=== PATIENT | female | born 1950 | race Asian ===

== ENCOUNTER 2016-11-09 14:24 | Outpatient (RCR) | payer OTHER | END 2016-11-21 | disposition home or self-care (01) | LOC: PULM 14:24 | PROVIDERS: ATTEND Nurse Practitioner Family | DX: J98.4 Other disorders of lung (principal); R06.00 Dyspnea, unspecified; E66.9 Obesity, unspecified | CPT/HCPCS: 99211 ==

== ENCOUNTER → 2017-03-10 | Outpatient (CLI) | payer MEDICARE, MEDICAID ==
--- NOTE | 2017-03-10 18:03 | Diagnostic Imaging Report ---
INDICATION: Screening for osteoporosis. EXAMINATION: DEXA scan. The bone mineral density of the hips and spine was measured. COMPARISON: There are no prior studies available for comparison. FINDINGS: The T-score for the spine is -0.3. The T-score for the left hip is 0.5 and for the right hip is 0.1. All of these values are within normal limits. IMPRESSION: The bone mineral density of the hips and spine is within normal limits. Dictated by: Dictated on workstation # [id number]
== END ==
LOC: RAD 09:03
PROVIDERS: ATTEND Nurse Practitioner Family
DX: Z78.0 Asymptomatic menopausal state (principal)
CPT/HCPCS: 77080

== ENCOUNTER → 2017-09-26 | Outpatient (CLI) | payer MEDICAID, MEDICARE ==
--- NOTE | 2017-09-26 18:30 | Diagnostic Imaging Report ---
PROCEDURE: MRI left joint lower extremity without contrast. TECHNIQUE: Multiplanar, multisequence non contrast-enhanced MRI of the left lower extremity was accomplished. INDICATION: Left knee injury and pain. COMPARISON: None. FINDINGS: Examination is limited by motion artifact. The anterior and posterior cruciate ligaments are intact. Intrasubstance degeneration of the anterior horn of the lateral meniscus with no focal tear. There is no visible body of the medial meniscus with anterior extrusion of the markedly degenerated anterior horn of the medial meniscus. Marked intrasubstance degeneration of the posterior horn of the medial meniscus. There is advanced chondromalacia with large osteophytes and near-complete joint space loss of the medial compartment. Similarly, there is advanced chondromalacia of the patellofemoral compartment with complete joint space loss and large osteophytes. There is more moderate chondromalacia of the medial compartment. Large left knee joint effusion. The medial and lateral collateral ligamentous complexes appear intact. The posterior lateral corner, medial patellar retinaculum, and extensor mechanism are intact. No abnormal bone marrow signal to suggest fracture or contusion. Normal flow void in the popliteal artery. Small popliteal cyst measuring up to 2.2 cm. IMPRESSION: 1. Examination is limited by motion artifact. 2. [id number] tricompartmental chondromalacia. 3. Extrusion and disruption of the medial meniscus is poorly characterized due to the motion artifact. The body of the medial meniscus is not seen. This appears to be chronic as there are advanced degenerative changes in the medial compartment. 3. Large right knee joint effusion. 4. No MRI evidence of an acute ligamentous or osseous injury. Dictated by: Dictated on workstation # [id number]
== END ==
LOC: RAD 16:25
PROVIDERS: ATTEND Nurse Practitioner Family
DX: M94.262 Chondromalacia, left knee (principal); M23.304 Other meniscus derangements, unspecified medial meniscus, left knee; M25.462 Effusion, left knee
CPT/HCPCS: 73721

== ENCOUNTER 2017-11-02 09:45 | Outpatient (CLI) | payer MEDICARE ==
[~2017-11-02] VITALS: Ht 157.5 cm; Wt 89.1 kg
[2017-11-02] MEDS ORDERED: GLUC480L3 PO (10:04)
[2017-11-02] MEDS ORDERED: PANADOL PO (10:04)
[2017-11-02] MEDS ORDERED: OMEG-160 PO (10:04)
[2017-11-02] MEDS ORDERED: OMEP40CA36 PO (10:04)
[2017-11-02] MEDS ORDERED: CALC1TAB PO (10:04)
[2017-11-02] MEDS ORDERED: MULT-35 PO (10:04)
[2017-11-02] MEDS ORDERED: LEVO75TA6 PO (10:04)
[2017-11-02] MEDS ORDERED: TIOT18CA2 IH (10:04)
[2017-11-02 10:09] VITALS: BP 138/86
[2017-11-03] MEDS ORDERED: BUDE10.2 IH (14:34)
== END 2017-11-02 11:33 | disposition home or self-care (01) ==
LOC: PREOP 09:45
PROVIDERS: ATTEND Orthopaedic Surgery
DX: Z01.818 Encounter for other preprocedural examination (principal); Z11.2 Encounter for screening for other bacterial diseases; M23.204 Derangement of unspecified medial meniscus due to old tear or injury, left knee
CPT/HCPCS: 87081

== ENCOUNTER 2017-11-09 07:57 | Day surgery (SDC) | payer MEDICARE, MEDICAID ==
--- NOTE | 2017-10-31 14:45 | HISTORY AND PHYSICAL ---
DATE OF SERVICE: DATE OF ADMISSION: 11/09/2017. REASON FOR ADMISSION: This will be for left knee arthroscopy as an outpatient surgery. HISTORY OF PRESENT ILLNESS: The patient is a 66-year-old female with complaints of left knee pain. She reports progressive worsening pain. She has undergone injections in the past with only temporary relief. She has taken oral steroids with minimal relief. She has been taking ibuprofen with minimal relief. She reports functional impairment. She reports difficulty with stairs. Radiographs revealed significant arthrosis. The patient understands that arthroscopy may provide hope with her mechanical symptoms, but will not alleviate her arthritic symptoms. She does not desire total knee arthroplasty currently. REVIEW OF SYSTEMS: No chest pain, no shortness of breath. No dysuria. PAST MEDICAL HISTORY: COPD, hypothyroidism, osteoarthritis, reflux. PAST SURGICAL HISTORY: Lymph node excision. FAMILY HISTORY: Significant for cardiovascular disease, cancer. PRIMARY CARE PROVIDER: Juan Jensen. MEDICATIONS: Centrum, ibuprofen, Spiriva, levothyroxine, Flonase, omeprazole, Zantac, prednisone, tramadol. ALLERGIES: No known drug allergies. SOCIAL HISTORY: The patient denies alcohol, tobacco use. PHYSICAL EXAMINATION: GENERAL: Well developed, well-nourished, in no acute distress. HEENT: Normocephalic, atraumatic. Pupils are equal, round and reactive to light. Oropharynx is clear. NECK: Supple, no lymphadenopathy. LUNGS: Clear to auscultation bilaterally. HEART: Regular rate and rhythm. ABDOMEN: Soft, nontender, nondistended. EXTREMITIES: The patient ambulates with an antalgic gait. Left knee demonstrates varus alignment. She has slight effusion. Range of motion is 0/30/100. No varus valgus laxity. She has negative anterior and posterior drawer. She has patellofemoral crepitus. Tender along the medial joint and pain medially with Mikaela's, corrected left knee, medial meniscal tear with chondromalacia. PLAN: Left knee arthroscopy with partial medial meniscectomy, chondroplasty. We discussed risks, benefits, options, ramifications and recovery. She understands and wishes to proceed. Job ID: [id number] DocumentID: [id number] Dictated Date: 10/31/2017 13:40:42 Computer Systems Security Administrator Date: 10/31/2017 14:16:52 Dictated By: SUDARSHAN BRICEÑO MD
[~2017-11-09] VITALS: Ht 157.5 cm; Wt 89.1 kg
[~2017-11-09 07:57] MED LIST: BUDE10.2 IH; CALC1TAB PO; GLUC480L3 PO; LEVO75TA6 PO; MULT-35 PO; OMEG-160 PO; OMEP40CA36 PO; PANADOL PO; TIOT18CA2 IH
[2017-11-09 08:00] VITALS: BP 114/88
[2017-11-09] MEDS ORDERED: LACTATED RINGERS 1,000 ML IV PRN ×2 (08:03→08:16)
[2017-11-09] MEDS ORDERED: ceFAZolin INJECTION 1,000 MG in NS (IVPB) 100 ML IV ONE (08:15)
[2017-11-09] MEDS ORDERED: BUPIVACAINE 0.25% 30 ML (SENSORCAINE) VIAL ONE ×2 (08:15→09:52)
[2017-11-09] MEDS ORDERED: FAMOTIDINE 20MG/2ML IV (PEPCID) IV ONE (08:30)
[2017-11-09] MEDS ORDERED: LIDOCAINE PF 2% 5 ML (XYLOCAINE) VIAL ONE (09:05)
[2017-11-09] MEDS ORDERED: proPOfol 200 MG/20 ML (DIPRIVAN) VIAL IV ONE (09:05)
[2017-11-09] MEDS ORDERED: ONDANSETRON 4 MG/2 ML (SDV) Z0FRAN ONE (09:05)
[2017-11-09] MEDS ORDERED: DEXAMETHASONE 10 MG/ML (DECADRON) 1 ML VIAL ONE (09:05)
[2017-11-09] MEDS ORDERED: SEVOFLURANE (ULTANE) 15 ML INHAL SOLN ONE (09:05)
[2017-11-09] MEDS ORDERED: morphine PF (DURAMORPH) 10 MG/10 ML AMP ONE (09:51)
--- NOTE | 2017-11-09 09:54 | Progress Note-Pre Operative ---
Pre-Operative Progress Note H&P Reviewed The H&P was reviewed, patient examined and no changes noted. Date Seen by Provider: Nov 09, 2017 Time Seen by Provider: :54 Date H&P Reviewed: Nov 09, 2017 Time H&P Reviewed: 09:54 Pre-Operative Diagnosis: left knee medial meniscus tear and chondromalacia SUDARSHAN BRICEÑO MD Nov 09, 2017 09:54
--- NOTE | 2017-11-09 09:55 | Progress Note-Post Operative ---
Post-Operative Progess Note Surgeon (s)/Chainstitch Hemmer (s) Surgeon SUDARSHAN BRICEÑO MD Chainstitch Hemmer: Suleiman Wick Pre-Operative Diagnosis left knee medial meniscus tear and chondromalacia Post-Operative Diagnosis left knee medial and lateral meniscus tears and chondromalacia of medial and lateral femoral condyles Procedure & Operative Findings Date of Procedure 11/09/17 Procedure Performed/Findings left knee arthroscopic partial medial and lateral meniscectomies and chondroplasty of the medial and lateral femoral condyles Anesthesia Type GETA Estimated Blood Loss Estimated blood loss (mL): minimal Specimens/Packing Specimens Removed none Packing: none SUDARSHAN BRICEÑO MD Nov 09, 2017 09:55
[2017-11-09] MEDS ORDERED: HYDROcodone/APAP 7.5 MG/325 MG (LORTAB, LORCET PLUS) TABLET PO PRN (10:00)
[2017-11-09] MEDS ORDERED: morphine INJ 10 MG/ML 1ML (SYR OR VIAL) IVP PRN (11:00)
[2017-11-09] MEDS ORDERED: ONDANSETRON 4 MG/2 ML (SDV) Z0FRAN IVP PRN (11:00)
[2017-11-09 11:40] VITALS: BP 133/92
--- NOTE | 2017-11-09 11:57 | Anesthesia-General Post-Op ---
General Patient Condition Mental Status/LOC: Same as Preop Cardiovascular: Satisfactory Nausea/Vomiting: Absent Respiratory: Satisfactory Pain: Controlled Complications: Absent Post Op Complications Complications None Follow Up Care/Instructions Patient Instructions None needed. Anesthesia/Patient Condition Patient Condition Patient is doing well, no complaints, stable vital signs, no apparent adverse anesthesia problems. No complications reported per nursing. [place] [facility] [place]: Yes MARILYNN MIRANDA CRNA Nov 09, 2017 11:57
[2017-11-09] MEDS ORDERED: HYDR-3816 PO (11:58)
[2017-11-09 12:15] VITALS: BP 129/75
[2017-11-09 12:45] VITALS: BP 117/65
[2017-11-09 13:25] VITALS: BP 117/65
--- NOTE | 2017-11-09 14:05 | Physical Therapy Ortho Eval ---
PT Orthopedic Evaluation Type of Surgery Knee Scope Left knee torn medial meniscus Prior Level of Function Current Living Status: Spouse Locomotion (Upon Admit): Independent Established Durable Medical Eq: Front Wheeled Walker Subjective Subjective Agreeable to PT. Spouse and son present. Entry Into Home: Stairs With Railing Steps Into Home: 3 Steps Inside Home: 13 Steps Accessories: Railing Present Motor Control Motor Control: Motor Control WNL ROM ROM: WFL, except focal deficit (knee flexion to 60 degrees) Strength Strength: WFL (except left SLR is min assist) Transfer Transfers (B, C, W/C) (FIM): 5 (6 after treatment) Gait Gait Assistive Device: FWW Right Lower Extremity: Right Weight Bearing Status RLE: Full Weight Bearing Left Lower Extremity: Left Weight Bearing Status LLE: Weight Bearing/Tolerated Gait (FIM): 5 (6 post treatment) Summary/Comments Gait training with education on WB status and use of FWW. Demonstrated correct performeance. Stair training with education on sequencing. Treatment Rendered Treatment: Therapeutic Exercises, Gait Train, Step Train Exercise Instruction: Quad Sets, Straight Leg Raise, Heel Slides Assessment/Goals Goal Time Frame: 1 Visit Understands HEP: Yes Safe Ambulation: Yes mod indep post visit. Plan Treatment Plan: Discharge Treatment Duration: 1 visit PT/Family Agrees to Plan: Yes Time Time In: 1230 Time Out: 1300 Total Billed Treatment Time: 30 Billed Treatment Time visit EVL 30 PT/OT Therapy GCodes Therapy Functional Limitation: Physical Therapy Test(s)/Tool used to determine: Level of Assistance Scale Functional Limitation-Current Charge Code: MOBCUR Modifier: CJ Functional Limitation-Goal Charge Code: MOBGOAL Modifier: CI Functional Limitation-D/C Charge Codes: MOBDC Modifier: CI ENOC ESPOSITO PT Nov 09, 2017 14:05
--- NOTE | 2017-11-09 18:33 | OPERATIVE REPORT ---
DATE OF SERVICE: 11/09/2017 PREOPERATIVE DIAGNOSES: 1. 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 2. Left knee chondromalacia lateral femoral condyle. 3. Left knee chondromalacia of the patella. 4. Left knee medial meniscal tear. POSTOPERATIVE DIAGNOSES: 1. Left knee medial meniscus tear. 2. Left knee lateral meniscus tear. 3. 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 4. Left knee chondromalacia lateral femoral condyle. PROCEDURE: 1. Left knee arthroscopic partial medial meniscectomy. 2. Left knee arthroscopic partial lateral meniscectomy. 3. Left knee arthroscopic chondroplasty of medial femoral condyle. 4. Left knee arthroscopic chondroplasty of the lateral femoral condyle. SURGEON: Sudarshan Briceño MD. COUPON COLLECTION CLERK: ASHLEIGH Torres, who assisted throughout the procedure and closed the incisions. ANESTHESIA: General endotracheal by . TOURNIQUET TIME: Not applicable. ESTIMATED BLOOD LOSS: Minimal. DRAINS: None. COMPLICATIONS: None. POSTOPERATIVE PLAN: A routine arthroscopy protocol. The patient was transferred to recovery room awake and in stable condition. STATEMENT OF MEDICAL NECESSITY: The patient is a 66-year-old female with left knee pain, catching, locking and swelling. She complained of pain primarily medially, but also anteriorly. Radiographs reveal severe medial and patellofemoral arthrosis. The patient was counseled that an arthroscopy may help with her mechanical symptoms but would not cure her arthritic symptoms. She understood that she would likely require total knee arthroplasty in the future. In order to try to provide some relief. The patient elected to proceed with surgical intervention. Examination under anesthesia revealed range of motion of0/4/120 with negative Susan, negative anterior and posterior drawer, negative pivot shift, no varus valgus laxity. Arthroscopic findings of the patella and trochlea demonstrated diffuse grade IV chondral loss throughout the groove and the majority of the central portion of the patella. The medial and lateral gutters were clear. The lateral compartment demonstrated grade III chondral flap on the anterior weightbearing portion of the femoral condyle and a 10 x 10 area. The anterior horn and body lateral meniscus demonstrated a degenerative tear involving approximately one-third of the anterior horn and body. The ACL and PCL were intact. Medial compartment demonstrated grade IV chondral loss centrally over the medial femoral condyle with surrounding grade III chondral flaps at the periphery. The medial meniscus demonstrated a degenerative tear of the posterior horn involving approximately one-half of 2 the posterior horn. The tibial plateau demonstrated diffuse grade IV chondral loss with no unstable chondral flaps. DESCRIPTION OF PROCEDURE: After risks and benefits of the procedure were discussed and questions were answered and informed consent was signed and placed on chart. The operative site was confirmed in the preoperative holding area initialed by the surgeon. The patient was then transferred to the operating room. After adequate levels of general endotracheal anesthetic was obtained, a timeout was called confirming the operative site. Examination under anesthesia was performed. The above findings noted. Left lower extremity was prepped and draped in the usual sterile fashion. The knee joint was injected with 60 mL of fluid. A standard inferolateral portal was placed with the arthroscope under direct visualization an inferior medial portal was created. The menisci cruciates carefully probed with the above findings noted. Then several chondral flaps in the medial femoral condyle were debrided and shaved back to a stable edge. The posterior horn of the medial meniscus was debrided with a shaver back to a stable edge. This was carefully probed with no further tearing or instability noted. The scope was then redirected into the lateral compartment and then several chondral flaps and lateral femoral condyle were debrided shaved back to a stable edge of the anterior horn and body lateral meniscus were debrided with shaver back to a stable edge. The knee was copiously irrigated. Portal sites were closed with 4-0 nylon in a simple interrupted fashion. Knee was injected with Duramorph. The portal sites were infiltrated with plain Marcaine. Soft dressing was applied and the patient transported to recovery room awake and stable condition. Job ID: [id number] DocumentID: [id number] Dictated Date: 11/09/2017 10:49:15 Laborer Shaft Sinking Date: 11/09/2017 18:33:14 Dictated By: SUDARSHAN BRICEÑO MD
== END 2017-11-09 13:25 | disposition home or self-care (01) ==
LOC: SDC 07:57
PROVIDERS: ATTEND Orthopaedic Surgery
DX: M23.8X2 Other internal derangements of left knee (principal); M94.262 Chondromalacia, left knee; J44.9 Chronic obstructive pulmonary disease, unspecified; E03.9 Hypothyroidism, unspecified; K21.9 Gastro-esophageal reflux disease without esophagitis; Z79.899 Other long term (current) drug therapy

== ENCOUNTER → 2019-01-29 | Outpatient (CLI) | payer MEDICARE, MEDICAID ==
[~2019-01-29] MED LIST changes: +HOLD METFORMIN - RECEIVED CONTRAST 20 ML VIAL IV SCH; +HYDR-3816 PO; +IOHEXOL 350 MG/ML 100 ML (OMNIPAQUE 350) VIAL IV ONE; +NS 100 ML (IVPB) BAG IV ONE
[2019-01-29 07:57] LABS: BUN/CREATININE RATIO 17; CREATININE SERUM 0.83 MG/DL (0.60-1.30); GFR ESTIMATED > 60
--- NOTE | 2019-01-29 10:00 | Diagnostic Imaging Report ---
PROCEDURE: CT chest with contrast only. TECHNIQUE: Multiple contiguous axial images were obtained through the chest after administration of intravenous contrast. Auto Exposure Controls were utilized during the CT exam to meet ALARA standards for radiation dose reduction. INDICATION: Hypoxia. COMPARISON: 07/06/2016. FINDINGS: The right ventricle is hypertrophic and there is dilation of the branch pulmonary artery suggestive of pulmonary hypertension. No axillary, supraclavicular or mediastinal lymphadenopathy. Lungs are clear. No edema or pneumonia. No pleural effusion or pneumothorax. No fibrosis. Lungs are mildly emphysematous. A few bullae are seen in the left lower lobe. Limited views of the upper abdomen are unremarkable. There are no suspicious osseous lesions. Right hemidiaphragm is elevated. IMPRESSION: 1. CT findings suggestive of pulmonary hypertension. 2. Mildly emphysematous lungs. 3. Elevated right hemidiaphragm. Dictated by: Dictated on workstation # [id number]
== END ==
LOC: RAD 07:25
PROVIDERS: ATTEND Nurse Practitioner Family
DX: J43.9 Emphysema, unspecified (principal); J98.6 Disorders of diaphragm; J98.4 Other disorders of lung; G47.34 Idiopathic sleep related nonobstructive alveolar hypoventilation; J30.9 Allergic rhinitis, unspecified; E66.9 Obesity, unspecified
CPT/HCPCS: 36415; 71260; 82565; 84520

== ENCOUNTER → 2019-03-21 | Outpatient (CLI) | payer MEDICARE, MEDICAID ==
[~2019-03-21] MED LIST changes: -HOLD METFORMIN - RECEIVED CONTRAST 20 ML VIAL IV SCH; -IOHEXOL 350 MG/ML 100 ML (OMNIPAQUE 350) VIAL IV ONE; -NS 100 ML (IVPB) BAG IV ONE; +RT-ALBUTEROL SULF 2.5 MG/3 ML PRE-MIX VIAL INH ONE
== END ==
LOC: RT 09:08
PROVIDERS: ATTEND Nurse Practitioner Family
DX: J98.4 Other disorders of lung (principal); J30.9 Allergic rhinitis, unspecified; E66.9 Obesity, unspecified; J44.9 Chronic obstructive pulmonary disease, unspecified; R09.02 Hypoxemia
CPT/HCPCS: 94060; 94726; 94729

== ENCOUNTER → 2021-01-20 | Outpatient (CLI) | payer MEDICARE, MEDICAID ==
[~2021-01-20] MED LIST changes: +HYDR-34 PO; -HYDR-3816 PO; -OMEP40CA36 PO; +OMEP40CA6 PO; -RT-ALBUTEROL SULF 2.5 MG/3 ML PRE-MIX VIAL INH ONE
--- NOTE | 2021-01-20 15:05 | Diagnostic Imaging Report ---
INDICATION: Postmenopausal state COMPARISON: 03/10/2017 FINDINGS: AP Spine L1-L4: [BMD (g/cm2): 1.155] [T-Score: -0.4] [Z-Score: 0.6] [BMD Previous: 1.160] [BMD % Change: -0.4] LT Hip Neck: [BMD (g/cm2): 0.814] [T-Score: -1.6] [Z-Score: -0.3] LT Hip Total: [BMD (g/cm2):1.047] [T-Score:0.3] [Z-Score: 1.3] [BMD Previous: 1.065] [BMD % Change: -1.7] RT Hip Neck: [BMD (g/cm2):0.832] [T-Score:-1.5] [Z-Score:-0.2] RT Hip Total: [BMD (g/cm2):1.011] [T-score:0.0] [Z-Score:1.0] [BMD Previous:1.021] [BMD % Change:-1.0] *Indicates significant change from prior examination based on 95% confidence level. World Health Organization criteria for BMD interpretation classify patients as Normal (T-score at or above -1.0), Osteopenic (T-score between -1.0 and -2.5) or Osteoporotic (T-score at or below -2.5). LIMITATIONS AND MODIFICATION: None. FRACTURE RISK (FRAX SCORE): The ten year probability of (%): Major Osteoporotic Fracture: [8.9] Hip Fracture: [1.6] IMPRESSION: 1. Osteopenia (Low bone mass). 2. No significant change in bone mineral density since prior examination. 3. See below National Osteoporosis Foundation guidelines on when to potentially initiate pharmacologic therapy. Based on the National Osteoporosis Foundation Guidelines, pharmacologic treatment should be initiated in any of the following, unless clinical conditions suggest otherwise: * Any patient with prior fragility fracture of the hip or vertebrae. A spine fracture indicates 5X risk for subsequent spine fracture and 2X risk for subsequent hip fracture. * Osteoporosis (T-score <-2.5). * Postmenopausal women and men age 50 and older with low bone mass/osteopenia (T-score between -1.0 and -2.5) by DXA and 10-year major osteoporotic fracture greater than 20% or a 10-year probability of hip fracture greater than 3%. These fracture risks are supplied above in the FRAX score, if applicable. * Clinician judgement and/or patient preferences may indicate treatment for people with 10-year fracture probabilities above or below these levels. Dictated by: Dictated on workstation # [id number]
== END ==
LOC: RAD 09:00
PROVIDERS: ATTEND Nurse Practitioner
DX: Z13.820 Encounter for screening for osteoporosis (principal); M85.80 Other specified disorders of bone density and structure, unspecified site; Z78.0 Asymptomatic menopausal state; Z92.21 Personal history of antineoplastic chemotherapy; Z92.241 Personal history of systemic steroid therapy
CPT/HCPCS: 77080

== ENCOUNTER → 2021-11-05 | Outpatient (CLI) | payer MEDICARE, MEDICAID | LOC: CARD 13:26 | PROVIDERS: ATTEND Internal Medicine Hematology & Oncology | DX: I51.7 Cardiomegaly (principal); I35.1 Nonrheumatic aortic (valve) insufficiency; C83.30 Diffuse large B-cell lymphoma, unspecified site | CPT/HCPCS: 93306 ==

== ENCOUNTER → 2022-03-12 | Outpatient (CLI) | payer MEDICARE, MEDICAID ==
--- NOTE | 2022-03-12 11:00 | Diagnostic Imaging Report ---
INDICATION: Difficulty breathing. Fluoroscopic observation over the chest was performed from both the frontal and lateral projections during different breathing maneuvers including rapid sniffing. At rest, there is elevation of the right hemidiaphragm. During inhalation through the mouth as well as rapidly through the nose, there is inferior movement of both the right and left hemidiaphragms. Although, the degree of excursion of the right hemidiaphragm is slightly less when compared to the normal appearing left side. No paradoxical motion is seen. No complete paralysis is identified. IMPRESSION: There is an elevated right hemidiaphragm. While this does show some excursion during inhalation, this does appear to be slightly less than the more normal-appearing left side. There is no paradoxical motion or complete paralysis identified. Dictated by: Dictated on workstation # [id number]
== END ==
LOC: RAD 09:06
PROVIDERS: ATTEND Internal Medicine Critical Care Medicine
DX: J98.6 Disorders of diaphragm (principal)
CPT/HCPCS: 76080

== ENCOUNTER → 2022-09-16 | Outpatient (CLI) | payer MEDICARE, MEDICAID ==
--- NOTE | 2022-09-16 09:41 | Diagnostic Imaging Report ---
EXAMINATION: Magnetic resonance imaging of the right shoulder without contrast. DATE: September 16, 2022. COMPARISON: None. HISTORY: 71-year-old female, right shoulder pain. TECHNIQUE: Magnetic Resonance Imaging sequences were performed of the shoulder without contrast. FINDINGS: ROTATOR CUFF, LIGAMENTS, TENDONS, AND MUSCLES: There is a 75% partial thickness articular sided tear involving the entire width of the supraspinatus tendon. The infraspinatus, teres minor, and subscapularis tendons are intact. There is normal rotator cuff muscle bulk and signal. LONG HEAD OF BICEPS: The biceps labral attachment and long head of the biceps tendon is intact. The long head of the biceps tendon is normally positioned within the bicipital groove. GLENOHUMERAL JOINT: The humeral head is well positioned relative to the glenoid. The labrum is grossly intact. There is no identified paralabral cyst. The articular cartilage is grossly intact. There is a large glenohumeral joint effusion. There is no identified intra-articular body or prominent synovitis. ACROMIOCLAVICULAR JOINT: There is mild widening of the acromioclavicular joint. The coracoclavicular and coracoacromial ligaments are intact. There are no prominent acromioclavicular degenerative changes. BONE: There is a healed prior fracture deformity of the left distal clavicle with fracture in the region of the attachment site of the coracoclavicular ligaments. There is no os acromiale. There is no Hill-Sachs deformity. There is no acute fracture, bone contusion, or evidence of osteonecrosis. BURSAE AND SOFT TISSUES: There is fluid in the subacromial subdeltoid bursa. IMPRESSION: 1. 75% partial thickness articular sided tear involving the entire width of the supraspinatus tendon. No fatty muscle atrophy. 2. Remote prior fracture deformity of the distal clavicle. No acute fracture, bone contusion, or evidence of osteonecrosis. 3. Intact proximal long head of biceps tendon. 4. Grossly intact labrum and articular cartilage of the glenohumeral joint. Large glenohumeral joint effusion without synovitis or intra-articular body. 5. No acromioclavicular degenerative changes. 6. Fluid in the subacromial subdeltoid bursa likely reflecting bursitis and/or very recent injection. Dictated by: Dictated on workstation # [id number]
== END ==
LOC: RAD 08:45
PROVIDERS: ATTEND Nurse Practitioner
DX: M75.111 Incomplete rotator cuff tear or rupture of right shoulder, not specified as traumatic (principal)
CPT/HCPCS: 73221

== ENCOUNTER → 2023-06-15 | Outpatient (CLI) | payer MEDICARE, MEDICAID ==
[~2023-06-15] VITALS: Ht 152.4 cm; Wt 88.2 kg
[~2023-06-15] MED LIST changes: +ACET-2267 PO; +ASCO120C PO; +CELE400C PO; +CETI10TA24 PO; +COD1CAPS13 PO; +FLUT1BLS IH; +FLUT9.9S NS; +GABA300S3 PO; +MONT-40 PO; +MULT-1067 PO; +RT-ALBUINH INH; +UMEC62.5 IH
[2023-06-15 11:10] VITALS: BP 122/88
--- NOTE | 2023-06-15 11:19 | Physical Therapy Pre-Op Eval ---
PT Pre-Surgical Assessment Type of Surgery Type of Surgery: Prior Level of Function Current Living Status: Alone Locomotion (Upon Admit): Independent Distance: Unlimited PLOF DME: Front Wheeled Walker Subjective Home: Single Level Current Living Status: Alone Entry Into Home: Stairs With Railing Steps Into Home: 10 Steps Accessories: Railing Present Will be staying with her son immediately after surgery. Sons house is a single level with 3 steps and no handrail to enter. Motor Control Motor Control: Motor Control WNL ROM ROM: WFL, except focal deficit Strength Strength: WFL Transfers Transfers (B, C, W/C) (FIM): 6 Gait Gait Distance (FIM): 6 Gait Assistive Device: FWW Right Lower Extremity: Right Full Weight Bearing Left Lower Extremity: Left Full Weight Bearing Treatment Rendered Treatment: Patient instructed in assistive device, supported ambulation. Patient instructed in and given written program of ROM and strengthening exercises to be preformed post-op. Patient instructed in movement precautions where applicable. Patient demonstrates understandings of post-operative therapy protocol including gait pattern and exercise program. Pre-operative instruction completed; await physical therapy orders after surgery. Treatment Goal Met: Yes Assessment Goals Acheived: I Ambulation w/ FWW, Understands P-op [place]aut, I Post-op Exercises Charges/GCodes Time In: 1038 Time Out: 1048 Total Billed Treatment Time: 10 Total Billed Treatment Visit, PHILIP CHRISTIANSON PT Jun 15, 2023 11:19
[2023-06-15 11:31] LABS: BACTERIA,URINE TRACE /HPF; BILIRUBIN,URINE NEGATIVE (NEGATIVE); CLARITY,URINE CLEAR; COLOR,URINE YELLOW; GLUCOSE, URINE (UA) NEGATIVE (NEGATIVE); KETONES,URINE NEGATIVE (NEGATIVE); LEUKOCYTE ESTERASE ,URINE NEGATIVE (NEGATIVE); NITRITE,URINE NEGATIVE (NEGATIVE); PROTEIN,URINE NEGATIVE (NEGATIVE); RBC,URINE RARE /HPF; WBC,URINE RARE /HPF
[2023-06-15 12:34] LABS: BASOPHILS % (AUTO) 0 % (0-10); EOSINOPHILS % (AUTO) 1 % (0-10); HEMATOCRIT 44 % (35-52); HEMOGLOBIN 14.7 g/dL (11.5-16.0); LYMPHOCYTES # (AUTO) 2.4 10^3/uL (1.0-4.0); LYMPHOCYTES % (AUTO) 29 % (12-44); MEAN CORPUSCULAR HEMOGLOBIN 31 pg (25-34); MEAN CORPUSCULAR HGB CONC 34 g/dL (32-36); MEAN CORPUSCULAR VOLUME 92 fL (80-99); MEAN PLATELET VOLUME 8.5 fL (9.0-12.2); MONOCYTES # (AUTO) 0.5 10^3/uL (0.0-1.0); MONOCYTES % (AUTO) 6 % (0-12); NEUTROPHILS # (AUTO) 5.3 10^3/uL (1.8-7.8); NEUTROPHILS % (AUTO) 63 % (42-75); PLATELET COUNT 315 10^3/uL (130-400); WHITE BLOOD COUNT 8.3 10^3/uL (4.3-11.0)
[2023-06-15 12:46] LABS: INR 1.2 (0.8-1.4); PROTHROMBIN TIME PATIENT 15.6 SEC (12.2-14.7)
[2023-06-15 12:59] LABS: ALANINE AMINOTRANSFERASE 23 U/L (0-55); ALBUMIN 4.6 GM/DL (3.2-4.5); ALKALINE PHOSPHATASE 55 U/L (40-136); BILIRUBIN,TOTAL 0.7 MG/DL (0.1-1.0); BUN/CREATININE RATIO 19; CARBON DIOXIDE 24 MMOL/L (21-32); CHLORIDE 99 MMOL/L (98-107); CREATININE SERUM 0.81 MG/DL (0.60-1.30); GFR ESTIMATED 77; GLUCOSE 87 MG/DL (70-105); POTASSIUM 4.3 MMOL/L (3.6-5.0); SODIUM 135 MMOL/L (135-145)
--- NOTE | 2023-06-15 14:58 | Diagnostic Imaging Report ---
INDICATION: Preoperative evaluation prior to knee surgery. COMPARISON: 03/12/2022 FINDINGS: Frontal and lateral views of the chest demonstrate normal heart size and pulmonary vascularity. The lungs are clear. There are no signs of infiltrate, pleural effusions or pneumothoraces. The visualized osseous structures show no acute abnormalities. IMPRESSION: 1. No acute process. No signs of infiltrates, effusions or pneumothoraces. Dictated by: Dictated on workstation # [id number]
== END ==
LOC: PREOP 05:41
PROVIDERS: ATTEND Orthopaedic Surgery
DX: Z01.811 Encounter for preprocedural respiratory examination (principal); M17.12 Unilateral primary osteoarthritis, left knee
CPT/HCPCS: 36415; 71046; 80053; 81000; 85025; 85610; 86850; 86900; 86901; 87081

== ENCOUNTER 2023-06-22 07:17 | Day surgery (SDC) | payer MEDICARE, MEDICAID ==
--- NOTE | 2023-06-15 06:38 | HISTORY AND PHYSICAL ---
DATE OF SERVICE: 06/22/2023 ADMISSION HISTORY AND PHYSICAL This will be for inpatient admission on 06/22/2023 for left total knee arthroplasty. SUMMARY: The patient is a 72-year-old female with severe left knee osteoarthritis. Radiographs reveal severe medial and patellofemoral arthrosis. She has undergone treatment with stem cells as well as other injections and arthroscopy without relief. Due to functional impairment and failure to improve with conservative measures, the patient has elected to proceed with surgical intervention. REVIEW OF SYSTEMS: No chest pain, no shortness of breath, no dysuria. PAST MEDICAL HISTORY: COPD, hypothyroidism, osteoarthritis, reflux, nodular sclerosing Hodgkin's disease. PAST SURGICAL HISTORY: Lymph node removal from the neck, left knee arthroscopy. SOCIAL HISTORY: The patient denies tobacco and alcohol use. FAMILY HISTORY: Significant for COPD, cardiovascular disease and cancer. PRIMARY CARE PROVIDER: [facility]. MEDICATIONS: Centrum, ibuprofen, levothyroxine, Flonase, Montelukast, Ventolin, Incruse Ellipta, famotidine, omeprazole, cetirizine, diclofenac. ALLERGIES: No known drug allergies. PHYSICAL EXAMINATION: GENERAL: The patient is well-developed, well-nourished, in no acute distress. HEENT: Normocephalic, atraumatic. Pupils are equal, round and reactive to light. Oropharynx is clear. NECK: Supple, with no lymphadenopathy. LUNGS: Clear to auscultation bilaterally. HEART: Regular rate and rhythm. ABDOMEN: Soft, nontender, nondistended. EXTREMITIES: Her left knee demonstrates varus alignment. There no skin lesions noted. She is tender along her medial femoral epicondyle. She has pain with patellar loading with crepitus noted. She ambulates with an antalgic gait. Range of motion is 0/3/120. IMPRESSION: Severe left knee osteoarthritis. PLAN: Left total knee arthroplasty. The risks, benefits, options, ramifications and recovery have been discussed at length with the patient. She understands and wishes to proceed. Job ID: [id number] DocumentID: [id number] Dictated Date: 06/06/2023 08:15:49 Wafer Fabricator Date: 06/06/2023 09:28:00 Dictated By: SUDARSHAN BRICEÑO MD
[2023-06-22] VITALS (10 sets, daily range): BP systolic 80–130; BP diastolic 40–89
[2023-06-22] MEDS ORDERED: NS (IVPB) 50 ML 50 ML ONE (07:21)
[2023-06-22] MEDS ORDERED: CEFUROXIME 1.5 GM VIAL ONE (07:21)
--- OUTSIDE RECORDS SUMMARY | 2023-06-22 07:22 | XMS REPORT ---
Author Author [facility] Address Unknown Phone Unavailable Care Team Providers Care Mammal Control Agent Name Role Phone FRANKOSAMANTHA STONE Unavailable [phone] PROBLEMS ALLERGIES No Known Allergies ENCOUNTERS from 1950 to 2022-12-31 IMMUNIZATIONS SOCIAL HISTORY No smoking Hx information available REASON FOR REFERRAL No Information VITAL SIGNS MEDICATIONS REASON FOR VISIT MEDICAL (GENERAL) HISTORY MENTAL STATUS ASSESSMENTS PLAN OF TREATMENT Insurance Providers MEDICATIONS ADMINISTERED
--- OUTSIDE RECORDS SUMMARY | 2023-06-22 07:22 | XMS REPORT ---
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 Problem resolved confirmed 92856953 Problem Hypothyroidis m (acquired) E03.9 confirmed 720839832 Problem Chronic obstructive pulmonary disease, unspecified COPD type J44.9 confirmed 61891351 Problem History of cancer Z85.9 confirmed 346173808 Problem Chronic fatigue R53.82 confirmed 07900736 Problem Obesity (BMI 30-39.9) E66.9 confirmed 457384807 Problem Nocturnal hypoxia G47.34 confirmed 501477374 Problem Other chronic pain G89.29 confirmed 01735616 Problem Bilateral primary osteoarthriti s of knee M17.0 confirmed 179966335 Problem Colon cancer screening declined Z53.20 confirmed 9856305960 9109 Problem BMI 35.0-35.9,aurora lt Z68.35 confirmed 8558532754 04521 Problem COPD with exacerbation J44.1 confirmed 857907933 Problem Restless sleeper G47.9 confirmed 58926708 Problem Moderate persistent asthma without complication J45.40 confirmed 422795124 Problem Screening declined by patient Z53.20 confirmed 5975759606 9100 Problem Rotator cuff tear, right M75.101 confirmed 09666025 00 0470055 Problem Complete rotator cuff tear or rupture of right shoulder, not specified as traumatic M75.121 confirmed 863570539 Problem Seasonal allergic rhinitis J30.2 confirmed [id number] ALLERGIES No Known Allergies ENCOUNTERS from 1950 to 2023-06-05 Encounter Location Date Provider [facility] [address] [facility] [facility] [id number] [place] [address] May, CHEYENNE DOMINGUEZ Encounter for immunization Z23 IMMUNIZATIONS Vaccine Route Administration Date Status 2nd Dose HRSA MODERNA, COVID -19, 0.5mL IM Intramuscular October 27, 2020 Administered PRIVATE FLULAVAL QUAD 0.5ML (6 MO AND UP) 2020 IM Intramuscular Jun 08, 2021 Administered PRIVATE HIGH DOSE FLU 22-23 (FLUZONE HD) AGE 65YRS AND UP IM Intramuscular Apr 06, 2022 Administer ed PRIVATE FLULAVAL QUAD 0.5ML (6 MO AND UP) 2018 IM Intramuscular May 19, 2018 Administered PRIVATE FLUZONE HIGH DOSE 0. 5ML (65 and UP) 2018 IM Intramuscular May 23, 2019 Administered 1st Dose HRSA MODERNA, COVID -19, 0.5mL IM Intramuscular September 29, 2020 Administered PRIVATE PPSV23 (PNEUMOVAX) IM Intramuscular Apr 06 Administered PRIVATE SHINGRIX (HERPES ZOS TER-2 DOSE) IM Intramuscular Mar 13, 2021 Administered PRIVATE SHINGRIX (HERPES ZOS TER-2 DOSE) IM Intramuscular January 05, 2021 Administered FLUARIX QUAD (3 AND UP) 2016 IM Intramuscular Jun 21, 2017 Administered FLUZONE HIGH DOSE 65 AND UP 2015 IM Intramuscular May 24, 2016 Administered PRIVATE TDAP (BOOSTRIX) IM Intramuscular January 11, 2017 Administered influenza IIV3 (history) Unknown May 11, 2013 Adm inistered influenza IIV3 (history) Unknown May 11, 2013 Teodoro heredia influenza IIV3 (history) Unknown Aug 09, 2012 Teodoro heredia SOCIAL HISTORY Sex Assigned At : Social History Observation Description Sex Assigned At Female Alcohol Screen (Audit-C) Question Answer Notes Did you have a drink containing alcohol in the p ast year? No Points 0 Interpretation Negative Sexual History Question Answer Notes Had sex in the past 12 months (vaginal, oral, or anal)? No Have you ever had a Sexually transmitted disease ? No PHQ2 Question Answer Notes In the last 2 weeks, how oft en have you had little interest or pleasure in doing things? Not at all In the last 2 weeks, how oft en have you been feeling down, depressed, or hopeless? Not at all Total PHQ2 Score 0 Tobacco use other than smoking: Question Answer Notes Are you an other tobacco user? No REASON FOR REFERRAL No Information MEDICATIONS Medication SIG (Take, Route, Frequency, Duration) Notes Start Date End Date Status Famotidine unknown dosage Not- Taking Omeprazole 40 MG TAKE ONE (1) CAPSULE BY MOUTH ONCE DAILY 30 MINUTES BEFORE MORNING MEAL Orally Once a day for 90 days Active Albuterol Sulfate HFA 108 (90 Base) MCG/ACT 1 puff as needed Inhalation every 4-6 hours as needed for 30 days Active Levothyroxine Sodium 75 MCG TAKE ONE (1) TABLET BY MOUTH ONCE DAILY IN THE MORNING ON AN EMPTY STOMACH for 30 days Active Diclofenac Sodium 3 % 1 application Externally Twice a day for 30 days Feb, Active Breo Ellipta 200-25 MCG/ACT INHALE ONE (1) PUFF BY MOUTH ONCE DAILY for 30 Please inform pt she will need to schedule an appt before further refills. Active Cetirizine HCl 10 MG 1 tablet Orally Once a day for 30 days Feb, Active Oxygen 2-3 l/min at bedtime- per Dr. Aguilar Active Fluticasone Propionate 50 MCG/ACT 1 spray in each nostril Nasally Twice a day for 30 days Active Centrum Silver Adult 50+ Orally Once a day Active Calcium 600 MG 1 tablet with meals Orally Once a day Feb, Active Cod Liver Oil - as directed Orally Active Incruse Ellipta 62.5 mcg/act INHALE ONE (1) PUFF BY MOUTH ONCE DAILY Inhalation Once a day for 30 days Active Montelukast Sodium 10 MG TAKE ONE (1) TABLET BY MOUTH ONCE DAILY Orally Once a day for 90 days Active Tylenol 325 MG 1 tablet as needed Orally every 4 hrs PRN Active REASON FOR VISIT Flu shot--chintan shen MEDICAL (GENERAL) HISTORY Type Description Date Medical History emphysema Medical History Arthritis Medical History Cancer lymphnodes (1 0 years ago. Had surgery, chemo, radiation) Medical History hypothyroidism Medical History 02/2017- Dexa Scan- s pine score is -0.3 and left hip is 0.5, right hip is 0.1 Medical History Asymptomatic uncomplicated menop ause Medical History Asymptomatic uncomplicated menop ause Medical History Hypothyroidism, unspecified type Medical History Postmenopausal disorder Medical History COPD with exacerbation Medical History Other hammer toe(s) (acquired), right foot Medical History Other hammer toe(s) (acquired), left foot Medical History Nodular sclerosis Ho dgkin lymphoma of lymph nodes of neck (resolved 04/08/2022) Surgical History Lymphnode removal in neck Hospitalization History surgery MENTAL STATUS No Information ASSESSMENTS Encounter Date Diagnosis Assessment Notes Treatment Notes Treatment Clinical Notes May, Encounter for immunization (ICD-10 - Z23) PLAN OF TREATMENT Next Appt Details Provider Name:JENNYFER WINN, 2023-07-04 08:40:00 AM, [address] [facility], [id number], [place], [address], Provider Name:JENNYFER WINN, 2023-08-08 10:00:00 AM, [address] [facility] [facility], [id number], [place], [address], Insurance Providers Payer Name Payer Address Payer Phone Insured Name Patient Relationship to Insured Coverage Start Date Coverage End Date Subscriber Number Group Number [employer] [address] [address] [facility] [phone] Nancy Avlaos am Self - patient is the insured [id number] [employer] [address] [facility] [address] Nancy Avalos am Self - patient is the insured [id number] [facility] MEDICARE Part A [address] [place] [address] Nancy Avalos am Self - patient is the insured 7 [id number] PART B ONLY RCM Missing insurance scan copy of card into pt doc Nancy Avalos am Self - patient is the insured [id number] MEDICATIONS ADMINISTERED Medication Instructions Date of Administration Dosag e B12, VITAMIN (UP TO 1000 MCG) Jan, 8 1000 mcg DEXAMETHASONE 4MG/ML (PER 1 ML) November, 019 4 mg B12, VITAMIN (UP TO 1000 MCG) May, 6 1000 ug DEPO MEDROL 80 MG/ML November, 80 mg
--- OUTSIDE RECORDS SUMMARY | 2023-06-22 07:22 | XMS REPORT ---
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 Problem resolved confirmed 10251498 Problem Chronic obstructive pulmonary disease, unspecified COPD type J44.9 confirmed 98717795 Problem GERD (gastroesopha geal reflux disease) K21.9 confirmed 849090133 Problem Chronic fatigue R53.82 confirmed 92983333 Problem Hypothyroidis m (acquired) E03.9 confirmed 415021308 Problem Obesity (BMI 30-39.9) E66.9 confirmed 485446856 Problem Moderate persistent asthma without complication J45.40 confirmed 797332901 Problem COPD with exacerbation J44.1 confirmed 356217031 Problem Rotator cuff tear, right M75.101 confirmed 44233785 00 0273286 Problem Nocturnal hypoxia G47.34 confirmed 176858986 Problem Complete rotator cuff tear or rupture of right shoulder, not specified as traumatic M75.121 confirmed 484756322 Problem History of cancer Z85.9 confirmed 718594141 Problem Other chronic pain G89.29 confirmed 99993345 Problem Bilateral primary osteoarthriti s of knee M17.0 confirmed 718139870 Problem Colon cancer screening declined Z53.20 confirmed 5624202542 9109 Problem Screening declined by patient Z53.20 confirmed 8671500264 9100 ALLERGIES No Known Allergies ENCOUNTERS from 1950 to 2023-02-25 Encounter Location Date Provider Diagnosis [facility] [address] [facility] [id number] [place] [address] Feb, SAMANTHA JONES IMMUNIZATIONS Vaccine Route Administration Date Status PRIVATE FLUZONE HIGH DOSE 0. 5ML (65 and UP) 2018 IM Intramuscular May 23, 2019 Administered PRIVATE FLULAVAL QUAD 0.5ML (6 MO AND UP) 2020 IM Intramuscular Jun 08, 2021 Administered PRIVATE HIGH DOSE FLU 22-23 (FLUZONE HD) AGE 65YRS AND UP IM Intramuscular Apr 06, 2022 Administer ed PRIVATE PPSV23 (PNEUMOVAX) IM Intramuscular Apr 06 Administered influenza IIV3 (history) Unknown May 11, 2013 Pen ding PRIVATE SHINGRIX (HERPES ZOS TER-2 DOSE) IM Intramuscular January 05, 2021 Administered 2nd Dose HRSA MODERNA, COVID -19, 0.5mL IM Intramuscular October 27, 2020 Administered influenza IIV3 (history) Unknown Aug 09, 2012 Pen ding influenza IIV3 (history) Unknown May 11, 2013 Adm inistered PRIVATE TDAP (BOOSTRIX) IM Intramuscular January 11, 2017 Administered FLUZONE HIGH DOSE 65 AND UP 2015 IM Intramuscular May 24, 2016 Administered FLUARIX QUAD (3 AND UP) 2016 IM Intramuscular Jun 21, 2017 Administered PRIVATE SHINGRIX (HERPES ZOS TER-2 DOSE) IM Intramuscular Mar 13, 2021 Administered PRIVATE FLULAVAL QUAD 0.5ML (6 MO AND UP) 2018 IM Intramuscular May 19, 2018 Administered 1st Dose HRSA MODERNA, COVID -19, 0.5mL IM Intramuscular September 29, 2020 Administered SOCIAL HISTORY Sex Assigned At : Social History Observation Description Sex Assigned At Unknown Alcohol Screen (Audit-C) Question Answer Notes Did [...] Date End Date Status Famotidine unknown dosage Acti ve Tylenol 325 MG 1 tablet as needed Orally every 4 hrs PRN Active Omeprazole 40 MG TAKE ONE (1) CAPSULE BY MOUTH ONCE DAILY 30 MINUTES BEFORE MORNING MEAL Orally Once a day for 90 days Active Oxygen 2-3 l/min at bedtime- per Dr. Aguilar Active Montelukast Sodium 10 MG TAKE ONE (1) TABLET BY MOUTH ONCE DAILY Orally Once a day for 90 days Active Incruse Ellipta 62.5 mcg/act INHALE ONE (1) PUFF BY MOUTH ONCE DAILY Inhalation Once a day for 30 days Active Albuterol Sulfate HFA 108 (90 Base) MCG/ACT 1 puff as needed Inhalation every 4-6 hours as needed for 30 days Active Centrum Silver Adult 50+ Orally Once a day Active Fluticasone Propionate 50 MCG/ACT 1 spray in each nostril Nasally Twice a day for 30 days Active Breo Ellipta 200-25 mcg/act INHALE ONE (1) PUFF(S) BY MOUTH ONCE DAILY Inhalation Once a day for 30 days Active Levothyroxine Sodium 75 MCG TAKE ONE (1) TABLET BY MOUTH ONCE DAILY IN THE MORNING ON AN EMPTY STOMACH for 30 Active REASON FOR VISIT [facility] MEDICAL (GENERAL) HISTORY Type Description Date Medical [...] Hospitalization History surgery MENTAL STATUS No Information PLAN OF TREATMENT Medication Medication Name Sig Start Date Stop Date Levothyroxine Sodium 75 MCG TAKE ONE (1) TABLET BY MOUTH ONCE DAILY IN THE MORNING ON AN EMPTY STOMACH for 30 Next Appt Details Provider Name:GABBY RUSH, 2023-03-11 09:00:00 AM, [address] [facility], [id number], [place], [address], Insurance Providers Payer Name Payer Address Payer Phone Insured Name Patient Relationship to Insured Coverage Start Date Coverage End Date Subscriber Number Group Number [employer] [address] [facility] [phone] Nancy Avalos am Self - patient is the insured [id number] [employer] [address] [address] [facility] [phone] Nancy Avalos am Self - patient is the insured [id number] [facility] Missing insurance scan copy of card into pt doc Nancy Avalos am Self - patient is the insured [id number] [facility] MEDICARE Part A [address] [place] [address] Nancy Avalos am Self - patient is the insured 7 [id number] PART B ONLY MEDICATIONS ADMINISTERED Medication Instructions Date of Administration Dosag e B12, VITAMIN (UP TO 1000 MCG) May, 6 1000 ug DEPO MEDROL 80 MG/ML November, 80 mg B12, VITAMIN (UP TO 1000 MCG) Jan, 8 1000 mcg DEXAMETHASONE 4MG/ML (PER 1 ML) November, 019 4 mg
--- OUTSIDE RECORDS SUMMARY | 2023-06-22 07:22 | XMS REPORT ---
Author Author 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 Problem resolved confirmed 12138920 Problem Chronic obstructive pulmonary disease, unspecified COPD type J44.9 confirmed 24998375 Problem GERD (gastroesopha geal reflux disease) K21.9 confirmed 517544924 Problem Chronic fatigue R53.82 confirmed 49502869 Problem Hypothyroidis m (acquired) E03.9 confirmed 833596594 Problem Obesity (BMI 30-39.9) E66.9 confirmed 530189317 Problem Moderate persistent asthma without complication J45.40 confirmed 856247274 Problem COPD with exacerbation J44.1 confirmed 817025436 Problem Rotator cuff tear, right M75.101 confirmed 24521128 00 4599437 Problem Nocturnal hypoxia G47.34 confirmed 228397168 Problem Complete rotator cuff tear or rupture of right shoulder, not specified as traumatic M75.121 confirmed 719648025 Problem History of cancer Z85.9 confirmed 175548014 Problem Other chronic pain G89.29 confirmed 71261287 Problem Bilateral primary osteoarthriti s of knee M17.0 confirmed 343405383 Problem Colon cancer screening declined Z53.20 confirmed 1457078130 9109 Problem Screening declined by patient Z53.20 confirmed 5379459315 9100 ALLERGIES No Known Allergies ENCOUNTERS from 1950 to 2022-12-29 Encounter Location Date Provider Diagnosis [facility] [address] [id number] [address] Dec, SAMANTHA JONES IMMUNIZATIONS Vaccine Route Administration Date Status PRIVATE SHINGRIX (HERPES ZOS TER-2 DOSE) IM Intramuscular January 05, 2021 Administered PRIVATE TDAP (BOOSTRIX) IM Intramuscular January 11, 2017 Administered PRIVATE SHINGRIX (HERPES ZOS TER-2 DOSE) IM Intramuscular Mar 13, 2021 Administered influenza IIV3 (history) Unknown May 11, 2013 Pen ding influenza IIV3 (history) Unknown Aug 09, 2012 Pen ding PRIVATE FLUZONE HIGH DOSE 0. 5ML (65 and UP) 2018 IM Intramuscular May 23, 2019 Administered PRIVATE PPSV23 (PNEUMOVAX) IM Intramuscular Apr 06 Administered 1st Dose HRSA MODERNA, COVID -19, 0.5mL IM Intramuscular September 29, 2020 Administered PRIVATE HIGH DOSE FLU 22-23 (FLUZONE HD) AGE 65YRS AND UP IM Intramuscular Apr 06, 2022 Administer ed PRIVATE FLULAVAL QUAD 0.5ML (6 MO AND UP) 2020 IM Intramuscular Jun 08, 2021 Administered 2nd Dose HRSA MODERNA, COVID -19, 0.5mL IM Intramuscular October 27, 2020 Administered PRIVATE FLULAVAL QUAD 0.5ML (6 MO AND UP) 2018 IM Intramuscular May 19, 2018 Administered FLUARIX QUAD (3 AND UP) 2016 IM Intramuscular Jun 21, 2017 Administered FLUZONE HIGH DOSE 65 AND UP 2015 IM Intramuscular May 24, 2016 Administered influenza IIV3 (history) Unknown May 11, 2013 Adm inistered SOCIAL HISTORY Sex Assigned At : Social [...] STOMACH for 30 Active REASON FOR VISIT comp faxed MEDICAL (GENERAL) HISTORY Type Description Date Medical [...] MORNING ON AN EMPTY STOMACH for 30 Insurance Providers Payer Name Payer Address Payer Phone Insured Name Patient Relationship to Insured Coverage Start Date Coverage End Date Subscriber Number Group Number [employer] [address] [facility] [phone] Nancy Avalos am Self - patient is the insured [id number] RCM Missing insurance scan copy of card into pt doc Nancy Avalos am Self - patient is the insured [id number] [employer] [address] [address] [facility] [phone] Nancy Avalos am Self - patient is the insured [id number] [facility] MEDICARE Part A FI [address] [place] [phone] Nancy Avalos am Self - patient is the insured 7 [id number] PART B ONLY MEDICATIONS ADMINISTERED Medication Instructions Date of Administration Dosag e B12, VITAMIN (UP TO 1000 MCG) Jan, 8 1000 mcg DEPO MEDROL 80 MG/ML November, 80 mg DEXAMETHASONE 4MG/ML (PER 1 ML) November, 019 4 mg B12, VITAMIN (UP TO 1000 MCG) May, 6 1000 ug
--- OUTSIDE RECORDS SUMMARY | 2023-06-22 07:22 | XMS REPORT ---
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 Problem resolved confirmed 33966647 Problem Chronic obstructive pulmonary disease, unspecified COPD type J44.9 confirmed 34639524 Problem GERD (gastroesopha geal reflux disease) K21.9 confirmed 476645309 Problem Chronic fatigue R53.82 confirmed 05049834 Problem Hypothyroidis m (acquired) E03.9 confirmed 904707153 Problem Obesity (BMI 30-39.9) E66.9 confirmed 158913883 Problem Moderate persistent asthma without complication J45.40 confirmed 248271577 Problem COPD with exacerbation J44.1 confirmed 146916259 Problem Rotator cuff tear, right M75.101 confirmed 43290687 00 4600142 Problem Nocturnal hypoxia G47.34 confirmed 847183286 Problem Complete rotator cuff tear or rupture of right shoulder, not specified as traumatic M75.121 confirmed 770512094 Problem History of cancer Z85.9 confirmed 192719866 Problem Other chronic pain G89.29 confirmed 65174346 Problem Bilateral primary osteoarthriti s of knee M17.0 confirmed 616941567 Problem Colon cancer screening declined Z53.20 confirmed 0524969081 9109 Problem Screening declined by patient Z53.20 confirmed [id number] 9100 ALLERGIES No Known Allergies ENCOUNTERS from 1950 to 2023-02-20 Encounter Location Date Provider Diagnosis [facility] [place] [address] [facility] [id number] [place] [address] Feb, CHEYENNE ANGELICA Encounter for immunization Z23 IMMUNIZATIONS Vaccine Route Administration Date Status FLUZONE HIGH DOSE 65 AND UP 2015 IM Intramuscular May 24, 2016 Administered influenza IIV3 (history) Unknown Aug 09, 2012 Pen ding 2nd Dose HRSA MODERNA, COVID -19, 0.5mL IM Intramuscular October 27, 2020 Administered PRIVATE SHINGRIX (HERPES ZOS TER-2 DOSE) IM Intramuscular January 05, 2021 Administered influenza IIV3 (history) Unknown May 11, 2013 Pen ding PRIVATE TDAP (BOOSTRIX) IM Intramuscular January 11, 2017 Administered influenza IIV3 (history) Unknown May 11, 2013 Adm inistered 1st Dose HRSA MODERNA, COVID -19, 0.5mL IM Intramuscular September 29, 2020 Administered PRIVATE PPSV23 (PNEUMOVAX) IM Intramuscular Apr 06 Administered FLUARIX QUAD (3 AND UP) 2016 IM Intramuscular Jun 21, 2017 Administered PRIVATE HIGH DOSE FLU 22-23 (FLUZONE HD) AGE 65YRS AND UP IM Intramuscular Apr 06, 2022 Administer ed PRIVATE FLULAVAL QUAD 0.5ML (6 MO AND UP) 2020 IM Intramuscular Jun 08, 2021 Administered PRIVATE FLUZONE HIGH DOSE 0. 5ML (65 and UP) 2018 IM Intramuscular May 23, 2019 Administered PRIVATE FLULAVAL QUAD 0.5ML (6 MO AND UP) 2018 IM Intramuscular May 19, 2018 Administered PRIVATE SHINGRIX (HERPES ZOS TER-2 DOSE) IM Intramuscular Mar 13, 2021 Administered SOCIAL HISTORY Sex Assigned At : [...] STOMACH for 30 Active REASON FOR VISIT [facility] MEDICAL (GENERAL) HISTORY Type Description Date Medical [...] Assessment Notes Treatment Notes Treatment Clinical Notes Feb, Encounter for immunization (ICD-10 - Z23) PLAN OF TREATMENT Medication Medication Name Sig Start Date Stop Date Levothyroxine Sodium 75 MCG TAKE ONE (1) TABLET BY MOUTH ONCE DAILY IN THE MORNING ON AN EMPTY STOMACH for 30 Next Appt Details Provider Name:GABBY RUSH, 2023-03-11 09:00:00 AM, [address] [facility], [id number], [place], [address], Insurance Providers Payer Name Payer Address Payer Phone Insured Name Patient Relationship to Insured Coverage Start Date Coverage End Date Subscriber Number Group Number RCM Missing insurance scan copy of card into pt doc Nancy Avalos am Self - patient is the insured [id number] [employer] [address] [facility] [phone] Nancy Avalos am Self - patient is the insured [id number] [facility] MEDICARE Part A FI [address] [place] [address] Nancy Avalos am Self - patient is the insured 7 [id number] PART B ONLY [employer] [address] [address] [facility] [phone] Nancy Avalos am Self - patient is the insured [id number] MEDICATIONS ADMINISTERED Medication Instructions Date of Administration Dosag e DEXAMETHASONE 4MG/ML (PER 1 ML) November, 019 4 mg DEPO MEDROL 80 MG/ML November, 80 mg B12, VITAMIN (UP TO 1000 MCG) May, 6 1000 ug B12, VITAMIN (UP TO 1000 MCG) Jan, 8 1000 mcg
[2023-06-22] MEDS ORDERED: CEFUROXIME INJECTION 750 MG in NS (IVPB) 50 ML 50 ML IV SCH (07:30)
[2023-06-22] MEDS ORDERED: TEMAZEPAM 15 MG (RESTORIL) CAP PO PRN (07:30)
[2023-06-22] MEDS ORDERED: ONDANSETRON INJECTION 4 MG/2 ML (SDV) IV PRN (07:30)
[2023-06-22] MEDS ORDERED: oxyCODONE/ACETAMINOPHEN 5/325MG TABLET PO PRN (07:30)
[2023-06-22] MEDS ORDERED: diphenhydrAMINE INJ 50 MG/ML VIAL IVP PRN (07:30)
--- NOTE | 2023-06-22 07:39 | Progress Note-Pre Operative ---
Pre-Operative Progress Note Date of Available H&P: Jun 15, 2023 Date H&P Reviewed: Jun 22, 2023 Time H&P Reviewed: 07:38 Changes from last HP none Pre-Operative Diagnosis: left knee primary osteoarthritis SUDARSHAN BRICEÑO MD Jun 22, 2023 07:38
--- NOTE | 2023-06-22 07:39 | Progress Note-Post Operative ---
Post-Operative Progess Note Surgeon (s)/Cereal Chemist (s) Surgeon SUDARSHAN BRICEÑO MD Cereal Chemist: Suleiman Wick Pre-Operative Diagnosis left knee primary osteoarthritis Post-Operative Diagnosis left knee primary osteoarthritis Procedure & Operative Findings Date of Procedure 06/22/23 Procedure Performed/Findings left total knee arthroplasty Anesthesia Type spinal Estimated Blood Loss Estimated blood loss (mL): minimal Specimens/Packing Specimens Removed none Packing: none SUDARSHAN BRICEÑO MD Jun 22, 2023 07:39
--- NOTE | 2023-06-22 07:42 | D/C HH Face to Face Order ---
D/C Face to Face Orders Reconcile Patient Problems Problems Reviewed?: Yes Instructions for Patient Via [facility], Patient Instructions/FollowUp: three weeks Physician to follow Patient: three weeks Discharge Diet for Home: Regular Diet Patient Data-Allergies,Ht & Wt Patient Allergies: Coded Allergies: No Known Drug Allergies (Unverified , 11/02/17) Height (Feet): 5 Height (Inches): 2.00 Weight (Pounds): 196 Weight (Ounces): 6.0 Home Health Need/Face to Face Date of Face to Face: Jun 22, 2023 Clinical Findings: Muscle weakness, Pain with ambulation I have seen Pt [id number]: Yes Discharged To: Home Diagnosis/Conditions: left total knee arthroplasty Patient is Homebound due to: Muscle weakness, Pain w/ambulation Homebound Status Due to the above stated illness, injury or surgical procedure (medical condition or diagnosis) and associated clinical findings, the patient is homebound because of his/her inability to leave home except with aid of a supportive device and/or person AND leaving the home requires a considerable and taxing effort or is medically contraindicated. Pt req the following assistanc: Walker Home Health Nursing Orders Home Health Services Order: Physical Therapy-Evaluate & Treat DC left knee christina and apply steri strips 07/06/23 Therapy Orders Therapy Orders: Physical Therapy, PT to assess for OT Therapy Specific Orders: Eval assistive deivces, Teach enviro modifications/safety, Gait training, Increase strength/endurance, Provider maintenance therapy, Restore ROM Certify Stmt I certify that this patient is under my care and that I, a nurse practitioner or a physician; a health assistant working with me, had a face to face encounter that - meets the physician face to face encounter requirements with this patient as dated. SUDARSHAN BRICEÑO MD Jun 22, 2023 07:42
[2023-06-22] MEDS ORDERED: fentaNYL INJECTION 100 MCG/2 ML VIAL ONE (08:56)
[2023-06-22] MEDS ORDERED: MIDAZOLAM INJ 2 MG/2 ML VIAL ONE (09:21)
[2023-06-22] MEDS ORDERED: PHENYLEPHRINE 100 MCG/ML 10 ML (ANESTHESIA) SYR ONE (09:30)
[2023-06-22] MEDS: CEFUROXIME INJECTION 750 MG in NS (IVPB) 50 ML 50 ML IV SCH ×2 (09:40→23:59)
[2023-06-22] MEDS ORDERED: LACTATED RINGERS 1,000 ML 1,000 ML IV PRN (10:00)
[2023-06-22] MEDS ORDERED: ONDANSETRON INJECTION 4 MG/2 ML (SDV) IVP PRN (11:15)
[2023-06-22] MEDS ORDERED: morphine INJ 10 MG/ML 1ML (SYR OR VIAL) IVP ONE (11:15)
[2023-06-22] MEDS ORDERED: CEFUROXIME INJECTION 1,500 MG in NS (IVPB) 50 ML 50 ML IV ONE (11:15)
[2023-06-22] MEDS ORDERED: MEPERIDINE INJ 50 MG/ML VIAL ONE (11:19)
--- NOTE | 2023-06-22 11:37 | Progress Note ---
Standard Progress Note Progress Notes/Assess & Plan Date Seen by a Provider: Jun 22, 2023 Time Seen by a Provider: 11:25 Progress/Assessment & Plan post op check no complaints radiographs--HW well positioned without fracture LLE--brisk cap refill with 2 plus DP pulse spinal in effect s/p LTKA mobilize as able SUDARSHAN BRICEÑO MD Jun 22, 2023 11:37
[2023-06-22] MEDS: SENNA W/DOCUSATE TABLET PO SCH ×2 (13:00→19:13)
[2023-06-22] MEDS: ASPIRIN enteric coated 81MG TABLET PO SCH (13:00)
[2023-06-22] MEDS: CELECOXIB 400 MG CAPSULE PO SCH (13:00)
[2023-06-22] MEDS: NS IV 1000 ML 1,000 ML IV SCH (13:00)
--- NOTE | 2023-06-22 13:02 | Consultation ---
HPI History of Present Illness: HPI/Chief Complaint Chief complaint: Left knee replacement medical management HPI: This is a 72-year-old female who presented to the fourth floor following a left knee replacement uncomplicated by Dr. Roland. Patient is currently doing well. She is having some pain. She is having some reflux we will restart her proton pump inhibitor. I have reviewed her meds and restarted everything. Family at the bedside. Source: patient Exam Limitations: no limitations Date Seen 06/22/23 Attending Physician No,Local Physician PCP Admitting Physician: Chris Roland MD Attending Physician: Chris Roland MD Referring Physician Date of Admission Jun 22, 2023 at 07:17 Home Medications & Allergies Home Medications Reviewed patient Home Medication Reconciliation performed by pharmacy medication reconciliations quality control technician and/or nursing. Patients Allergies have been reviewed. Allergies Allergies Coded Allergies No Known Drug Allergies (Unverified11/02/17) Past Cfagdne-Poxfob-Sukwdr Hx Past Med/Social Hx: Reviewed Nursing Past Med/Soc Hx, Reviewed and Corrections made Patient Social History Marrital Status: Employed/Student: retired Alcohol Use: Denies Use Smoking Status: Never a Smoker Recent Hopitalizations: No Immunizations Up To Date Date of Influenza Vaccine: May 09, 2017 Seasonal Allergies Seasonal Allergies: Yes Past Medical History Surgeries: Orthopedic Currently Using CPAP: No Currently Using BIPAP: No Reproductive: No Sexually Transmitted Disease: No HIV/AIDS: No Gastrointestinal: Gastroesophageal Reflux Musculoskeletal: Arthritis, Chronic Back Pain Loss of Vision: Bilateral Hearing Impairment: Denies Cancer: Lymphoma What Type of Treatment Did You: Chemotherapy, Radiation, Surgical Intervention History of Blood Disorders: No Adverse Reaction to Blood Osullivan: No (N/A) Review of Systems Constitutional: see HPI Gastrointestinal: heartburn Musculoskeletal: joint pain Physical Exam Physical Exam Vital Signs Vital Signs - First Documented 06/22/23 11:50 Pulse 84 Capillary Refill : Less Than 3 Seconds Height, Weight, BMI Height: 5'2.00" Weight: 196lbs. 6.0oz. [id number]; 37.97 BMI Method: General Appearance: No Apparent Distress, WD/WN Eyes: Bilateral Eye Normal Inspection, Bilateral Eye PERRL HEENT: PERRL/EOMI, Normal ENT Inspection, Pharynx Normal Neck: Full Range of Motion, Normal Inspection, Non Tender, Supple, Carotid Bruit Respiratory: Chest Non Tender, Lungs Clear, Normal Breath Sounds, No Accessory Muscle Use, No Respiratory Distress Cardiovascular: Regular Rate, Rhythm, No Edema, No Gallop, No JVD, No Murmur, Normal Peripheral Pulses Gastrointestinal: Normal Bowel Sounds, No Organomegaly, No Pulsatile Mass, Non Tender, Soft Back: Normal Inspection, No CVA Tenderness, No Vertebral Tenderness Extremity: Normal Capillary Refill, Normal Inspection, Normal Range of Motion (Left leg), Non Tender, No Calf Tenderness, No Pedal Edema Neurologic/Psychiatric: Alert, Oriented x3, No Motor/Sensory Deficits, Normal Mood/Affect Skin: Normal Color, Warm/Dry Lymphatic: No Adenopathy Results Results/Procedures Labs Patient resulted labs reviewed. Assessment/Plan Assessment and Plan Assess & Plan/Chief Complaint Assessment: Left knee replacement due to severe osteoarthritis GERD Hypothyroidism Nocturnal hypoxia on 2 L of oxygen at night COPD Plan: Supportive care Monitor blood pressure Check labs in irisgonzaloJose DEL CIDLUIS Jun 22, 2023 13:02
[2023-06-22] MEDS ORDERED: INTRA-ARTICULAR IU ONE ×5 (14:15)
[2023-06-22] MEDS ORDERED: GABA300C PO (14:39)
[2023-06-22] MEDS ORDERED: FLUT16SP22 NSEACH (14:39)
[2023-06-22] MEDS ORDERED: MULT-1029 PO (14:39)
[2023-06-22] MEDS ORDERED: MELO15TA39 PO (14:39)
[2023-06-22] MEDS ORDERED: TRAM50TA3 PO (14:39)
[2023-06-22] MEDS ORDERED: CETI10TA17 PO (14:39)
[2023-06-22] MEDS ORDERED: HYDR-3817 PO (14:39)
[2023-06-22] MEDS ORDERED: FLUTICASONE NASAL SPRAY (120 SPRAYS) NS PRN (14:45)
[2023-06-22] MEDS ORDERED: ACETAMINOPHEN 500 MG TABLET PO PRN (14:45)
--- NOTE | 2023-06-22 14:57 | Physical Therapy Evaluation ---
PT Evaluation-General Medical Diagnosis Admission Date Jun 22, 2023 at 07:17 Medical Diagnosis: LTKA Onset Date: Jun 22, 2023 Therapy Diagnosis Therapy Diagnosis: Gait deficit, strength deficit Height/Weight Height (Feet): 5 Height (Inches): 2.00 Weight (Pounds): 196 Weight (Ounces): 6.0 Precautions Precautions/Isolations: Fall Prevention, Standard Precautions Weight Bear Status Right Lower Extremity: Right Full Weight Bearing Left Lower Extremity: Left Weight Bearing/Tolerated Referral Physician: Dr. Roland Reason for Referral: Evaluation/Treatment Medical History Reviewed History: Yes Social History Home: Single Level Current Living Status: Children Entry Into Home: Stairs Without Railing PT Steps Into Home: 3 Prior Prior Level of Function SCALE: Activities may be completed with or without assistive devices. 7-Bwwedhpaim-wfydbpq completes the activity by him/herself with no assistance from a helper. 5-Set-up or Clean-up Assistance-helper sets up or cleans up; patient completes activity. [place] assists only prior to or following the activity. 4-Supervision or Touching Assistance-helper provides verbal cues and/or touching/steadying and/or contact guard assistance as patient completes activity. Assistance may be provided throughout the activity or intermittently. 3-Partial/Moderate Assistance-helper does LESS THAN HALF the effort. [place] lifts, holds or supports trunk or limbs, but provides less than half the effort. 2-Substantial/Maximal Assistance-helper does MORE THAN HALF the effort. [place] lifts or holds trunk or limbs and provides more than half the effort. 0-Qmwfiezts-tqoxoh does ALL the effort. Patient does none of the effort to complete the activity. Or, the assistance of 2 or more helpers is required for the patient to complete the activity. If activity was not attempted, code reason: 7-Patient Refused. 9-Not Applicable-not attempted and the patient did not perform the activity before the current illness, exacerbation or injury. 10-Not Attempted due to Environmental Limitations-(lack of equipment, weather restraints, etc.). 88-Not Attempted due to Medical Conditions or Safety Concerns. Bed Mobility: 6 Transfers (B,C,W/C): 6 Gait: 6 Stairs: 6 Indoor Mobility (Ambulation): Independent Stairs: Independent Prior Devices Use: None PT Evaluation-Current Subjective Patient lying supine in bed upon PT arrival, agreeable to treatment. Patient rates pain at 5/10 in left knee currently. Objective Patient Orientation: Person, Place, Time, Situation Attachments: Polar Pack, IV ROM/Strength ROM Lower Extremities Left knee flex/ext, 95/5 degrees. All right LE planes WFLs Strength Lower Extremities Left knee flexion/ extension 3-/5 each. All right LE planes 5/5 Sensory Vision: Functional Hearing: Functional Sensation Right Lower Extremit: Intact Sensation Left Lower Extremity: Intact Transfers Roll Left to Right (QC): 4 Sit to Lying (QC): 4 Lying to Sitting/Side of Bed(Q: 4 Sit to Stand (QC): 3 Chair/Uli-ka-Kmbwm Xfer(QC): 3 Gait Does the Patient Walk?: Yes Mode of Locomotion: Walk Anticipated Mode of Locomotion: Walk Walk 10 feet (QC): 4 Walk 50 ft with 2 Turns(QC): 3 Distance: 40' Gait Assistive Device: FWW Balance Sitting Static: Good Sitting Dynamic: Good Standing Static: Fair Standing Dynamic: Fair Assessment/Needs Patient tolerated treatment well. She performs all bed mobility and transfers with SBA to min A. Patient ambulates 40 feet with FWW, with min A and verbal cues for gait pattern, safety, progression, control of FWW. Patient in chair post treatment with all needs met, nursing notified, call light in hand. Rehab Potential: Fair Equipment Needs FWW PT Dissolver Operator Goals Dissolver Operator Goals PT Dissolver Operator Goals Time Frame: Jul 22, 2023 Roll Left & Right (QC): 6 Sit to Lying (QC): 6 Lying-Sitting on Side/Bed(QC): 6 Sit to Stand (QC): 6 Chair/Wnu-zl-Bsrvg Xfer(QC): 6 Toilet Transfer (QC): 6 Does the Patient Walk: Yes Walk 10 feet (QC): 6 Walk 50ft with 2 Turns (QC): 6 Walk 150 ft (QC): 6 1 Step (curb) (QC): 4 4 Steps (QC): 4 PT Plan Problem List Problem List: Activity Tolerance, Functional Strength, Safety, Balance, Gait, Transfer, Bed Mobility, ROM Treatment/Plan Treatment Plan: Continue Plan of Care Treatment Plan: Bed Mobility, Education, Functional Activity Bárbara, Functional Strength, Group Therapy, Gait, Safety, Therapeutic Exercise, Transfers Treatment Duration: Jul 23, 2023 Frequency: 11 times per week Estimated Hrs Per Day: .25 hour per day Safety Risks/Education Patient Education: Gait Training, Transfer Techniques Teaching Recipient: Patient, Family Teaching Methods: Demonstration, Discussion Response to Teaching: Verbalize Understanding, Return Demonstration Time Time In: 1332 Time Out: 1402 DATE: Jun 22, 2023 Total Billed Treatment Time: 30 Total Billed Treatment Visit, PATRICK CHAPMAN JOHN A PT Jun 22, 2023 14:57
--- NOTE | 2023-06-22 15:52 | Diagnostic Imaging Report ---
INDICATION: Status post knee replacement. COMPARISON: None. FINDINGS: Multiple radiographic views of the left knee were obtained. Expected postoperative changes are seen from left knee total arthroplasty. Femoral and tibial components appear well-seated. There is no evidence of periprosthetic fracture. No unexpected radiopaque foreign bodies are identified. IMPRESSION: Expected postsurgical changes from left knee total arthroplasty, as described above. No evidence of hardware compromise. Dictated by: Dictated on workstation # [id number]
--- NOTE | 2023-06-22 17:23 | OPERATIVE REPORT ---
DATE OF SERVICE: 06/22/2023 PREOPERATIVE DIAGNOSIS: Left knee primary osteoarthritis. POSTOPERATIVE DIAGNOSIS: Left knee primary osteoarthritis. PROCEDURE: Left total knee arthroplasty. SURGEON: Chris Briceño MD SOLDERING MACHINE OPERATOR HELPER: Suleiman Wick, who assisted throughout the procedure and closed the incision. ANESTHESIA: Spinal by Syed Austin CRNA. TOURNIQUET TIME: Approximately 63 minutes at 300 mmHg. ESTIMATED BLOOD LOSS: Minimal. DRAINS: None. COMPLICATIONS: None. POSTOPERATIVE PLAN: Routine total knee arthroplasty protocol. The patient was transferred to the recovery room awake and stable condition. MATERIALS: Microport cemented size 3 femur, cemented size 3 tibia with 10 mm insert and cemented size 29 patellar button. STATEMENT OF MEDICAL NECESSITY: The patient is a 72-year-old female with longstanding progressive left knee pain. She has undergone treatment with injections, anti-inflammatories and rest without relief. Radiographs revealed severe tricompartmental osteoarthritis. Due to functional impairment and failure to improve with conservative measures, the patient elected to proceed with surgical intervention. DESCRIPTION OF PROCEDURE: After risks and benefits of the procedure were discussed and questions were answered and informed consent was signed and placed on the chart, the operative site was confirmed in the preoperative holding area initialed by surgeon. The patient was then transported to the operating room and after adequate levels of regional anesthetic were obtained, a timeout was called, confirming the operative site. The left lower extremity was prepped and draped in the usual sterile fashion with the leg elevated and the knee flexed, tourniquet was inflated to 300 mmHg. A standard anterior approach was utilized. Hemostasis was obtained with cautery. A medial parapatellar arthrotomy was used, leaving 1 cm cuff on the patella for later reattachment. Portion of the fat pad was resected. Subperiosteal release was performed on the proximal medial tibia with a curved osteotome, being careful to stay on the bony surface. The ACL was absent. Intramedullary guide was passed into the femoral canal. The distal cutting block was placed. Distal cut was made. The femur sized to a size 3. The 3 cutting block was placed parallel to the epicondylar axis and cuts were made from posterior to anterior. Subperiosteal release was then carefully performed on the posterior distal femur, being careful to stay on the bony surface with a curved osteotome. The intramedullary guide was then passed into the tibia. The cutting block was placed. The drop ron transected the intermalleolar axis and the cut was made. The 3 baseplate provided excellent coverage. This was prepared with the drill and keel punch after ensuring that it was properly positioned with the drop ron. The femoral trial was placed and trochlear cut was made. The patella was then prepared by resecting 10 mm off the undersurface. Peg guide was placed. Peg holes were drilled. The 29 trial was placed with a 10 mm insert on the tibia. The knee was taken through range of motion. Full extension was easily obtained under 20 degrees of flexion with gravity was easily obtained. There was no anterior/posterior or medial/lateral laxity in flexion or extension and the patella tracked well. The trials were removed. The joint was irrigated with pulse lavage. Periarticular block was placed in the posterior capsule, medial and lateral retinaculum extensor mechanism, subcutaneous tissues. The bone ends were irrigated and dried. The tibial baseplate was cemented into position. Excessive cement was removed. Superior surface was irrigated and dried and the polyethylene insert was placed. Distal femur was irrigated and dried and the femoral prosthesis was cemented into position. Excessive cement was removed. The knee was brought out into full extension until the cement had cured. The undersurface of the patella was irrigated and dried. The patellar button was cemented into position. Excessive cement was removed. Once the cement had cured, the knee was taken through range of motion. Full extension was easily obtained under 20 degrees of flexion with gravity was easily obtained. There was no anterior/posterior or medial/lateral laxity in flexion or extension. The joint was further irrigated with pulse lavage. In addition, 450 mL of irrisept was used throughout the procedure. The arthrotomy was closed with #2 Tevdek in nqqtnb-hx-roepp interrupted fashion. Knee was flexed. Repair was stable, patella tracked well. Subcutaneous tissues were irrigated with pulse lavage using a total of 6 liters throughout the procedure. 0 Vicryl was used for deep subcutaneous layer, 2-0 Vicryl for the superficial subcutaneous layer, christina used on the skin and soft dressing was applied. The tourniquet was deflated. The patient was transported to the recovery room, awake and in stable condition. Job ID: [id number] DocumentID: [id number] Dictated Date: 06/22/2023 10:55:06 Community Assistant Date: 06/22/2023 17:21:00 Dictated By: CHRIS BRICEÑO MD
[2023-06-22] MEDS ORDERED: GABAPENTIN 300 MG CAPSULE PO SCH ×2 (21:00)
[2023-06-22] MEDS ORDERED: UMECLIDINIUM BROMIDE (INCRUSE ELLIPTA) 7'S IH SCH (21:00)
[2023-06-22] MEDS ORDERED: TIOTROPIUM INH 4 GM (SPIRIVA Respimat) IH SCH (21:00)
[2023-06-22] MEDS ORDERED: MONTELUKAST 10 MG TABLET PO SCH (21:00)
[2023-06-23 03:05] VITALS: BP 111/75
[2023-06-23] MEDS: NS IV 1000 ML 1,000 ML IV SCH (03:33)
[2023-06-23 06:03] LABS: BASOPHILS % (AUTO) 0 % (0-10); EOSINOPHILS % (AUTO) 0 % (0-10); HEMATOCRIT 36 % (35-52); HEMOGLOBIN 11.9 g/dL (11.5-16.0); LYMPHOCYTES # (AUTO) 1.1 10^3/uL (1.0-4.0); LYMPHOCYTES % (AUTO) 12 % (12-44); MEAN CORPUSCULAR HEMOGLOBIN 31 pg (25-34); MEAN CORPUSCULAR HGB CONC 34 g/dL (32-36); MEAN CORPUSCULAR VOLUME 92 fL (80-99); MEAN PLATELET VOLUME 8.8 fL (9.0-12.2); MONOCYTES # (AUTO) 1.2 10^3/uL (0.0-1.0); MONOCYTES % (AUTO) 13 % (0-12); NEUTROPHILS # (AUTO) 6.8 10^3/uL (1.8-7.8); NEUTROPHILS % (AUTO) 75 % (42-75); PLATELET COUNT 258 10^3/uL (130-400); WHITE BLOOD COUNT 9.1 10^3/uL (4.3-11.0)
[2023-06-23 06:07] LABS: ALBUMIN 3.6 GM/DL (3.2-4.5)
[2023-06-23 06:08] LABS: CALCIUM 8.5 MG/DL (8.5-10.1)
[2023-06-23 06:10] LABS: TOTAL PROTEIN 6.1 GM/DL (6.4-8.2)
[2023-06-23 06:11] LABS: BILIRUBIN,TOTAL 1.1 MG/DL (0.1-1.0)
[2023-06-23 06:13] LABS: CREATININE SERUM 0.74 MG/DL (0.60-1.30)
[2023-06-23] MEDS ORDERED: LEVOTHYROXINE 75 MCG TABLET PO SCH (06:30)
[2023-06-23] MEDS ORDERED: THERAPEUTIC MULTIVITAMIN W/MINERALS TABLET PO SCH (07:00)
[2023-06-23 07:33] VITALS: BP 112/67
--- NOTE | 2023-06-23 07:53 | Progress Note ---
Standard Progress Note Progress Notes/Assess & Plan Date Seen by a Provider: Jun 23, 2023 Time Seen by a Provider: 07:35 Progress/Assessment & Plan post op check no complaints radiographs--HW well positioned without fracture LLE--brisk cap refill with 2 plus DP pulse spinal in effect s/p LTKA mobilize as able Final Diagnosis no complaints Vital Signs Date Time Temp Pulse Resp B/P (MAP) Pulse Ox O2 Delivery O2 Flow Rate FiO2 06/23/23 07:33 36.5 99 16 112/67 (82) 92 Room Air 06/23/23 03:05 36.3 93 16 111/75 (87) 89 Room Air 06/22/23 23:07 36.2 90 18 124/80 (95) 98 Room Air 06/22/23 19:43 36.4 86 15 118/78 (91) 96 Room Air 06/22/23 19:18 Room Air 06/22/23 15:25 36.2 83 15 130/81 (97) 96 Room Air 06/22/23 12:18 Room Air 06/22/23 11:50 36.1 84 16 113/75 (88) 97 Room Air 06/22/23 11:50 Room Air 06/22/23 11:50 36.3 20 117/67 (84) 99 Room Air 06/22/23 11:45 Room Air 06/22/23 11:40 20 117/67 (84) 100 Room Air 06/22/23 11:30 20 93/67 (76) 100 OxyMask 2.00 06/22/23 11:30 OxyMask 2.00 06/22/23 11:20 20 109/89 (96) 100 OxyMask 2.00 06/22/23 11:15 OxyMask 2.00 06/22/23 11:10 20 109/89 (96) 100 OxyMask 2.00 06/22/23 11:00 OxyMask 2.00 06/22/23 11:00 20 80/40 (53) 96 OxyMask 2.00 06/22/23 10:50 OxyMask 2.00 06/22/23 10:50 36.3 20 81/45 (57) 98 OxyMask 2.00 I & O 06/23/23 06:59 Intake Total 1390 ml Output Total 700 ml Balance 690 ml Vital Signs Date Time Temp Pulse Resp B/P (MAP) Pulse Ox O2 Delivery O2 Flow Rate FiO2 06/23/23 07:33 36.5 99 16 112/67 (82) 92 Room Air 06/23/23 03:05 36.3 93 16 111/75 (87) 89 Room Air 06/22/23 23:07 36.2 90 18 124/80 (95) 98 Room Air 06/22/23 19:43 36.4 86 15 118/78 (91) 96 Room Air 06/22/23 19:18 Room Air 06/22/23 15:25 36.2 83 15 130/81 (97) 96 Room Air 06/22/23 12:18 Room Air 06/22/23 11:50 36.1 84 16 113/75 (88) 97 Room Air 06/22/23 11:50 Room Air 06/22/23 11:50 36.3 20 117/67 (84) 99 Room Air 06/22/23 11:45 Room Air 06/22/23 11:40 20 117/67 (84) 100 Room Air 06/22/23 11:30 20 93/67 (76) 100 OxyMask 2.00 06/22/23 11:30 OxyMask 2.00 06/22/23 11:20 20 109/89 (96) 100 OxyMask 2.00 06/22/23 11:15 OxyMask 2.00 06/22/23 11:10 20 109/89 (96) 100 OxyMask 2.00 06/22/23 11:00 OxyMask 2.00 06/22/23 11:00 20 80/40 (53) 96 OxyMask 2.00 06/22/23 10:50 OxyMask 2.00 06/22/23 10:50 36.3 20 81/45 (57) 98 OxyMask 2.00 I & O 06/23/23 06:59 Intake Total 1390 ml Output Total 700 ml Balance 690 ml Laboratory Tests Test 06/23/23 05:29 Range/Units White Blood Count 9.1 4.3-11.0 10^3/uL Red Blood Count 3.86 3.80-5.11 10^6/uL Hemoglobin 11.9 11.5-16.0 g/dL Hematocrit 36 35-52 % Mean Corpuscular Volume 92 80-99 fL Mean Corpuscular Hemoglobin 31 25-34 pg Mean Corpuscular Hemoglobin Concent 34 32-36 g/dL Red Cell Distribution Width 13.2 10.0-14.5 % Platelet Count 258 130-400 10^3/uL Mean Platelet Volume 8.8 L 9.0-12.2 fL Immature Granulocyte % (Auto) 0 % Neutrophils (%) (Auto) 75 42-75 % Lymphocytes (%) (Auto) 12 12-44 % Monocytes (%) (Auto) 13 H 0-12 % Eosinophils (%) (Auto) 0 0-10 % Basophils (%) (Auto) 0 0-10 % Neutrophils # (Auto) 6.8 1.8-7.8 10^3/uL Lymphocytes # (Auto) 1.1 1.0-4.0 10^3/uL Monocytes # (Auto) 1.2 H 0.0-1.0 10^3/uL Eosinophils # (Auto) 0.0 0.0-0.3 10^3/uL Basophils # (Auto) 0.0 0.0-0.1 10^3/uL Immature Granulocyte # (Auto) 0.0 0.0-0.1 10^3/uL Sodium Level 132 L 135-145 MMOL/L Potassium Level 4.0 3.6-5.0 MMOL/L Chloride Level 100 98-107 MMOL/L Carbon Dioxide Level 26 21-32 MMOL/L Anion Gap 6 5-14 MMOL/L Blood Urea Nitrogen 13 7-18 MG/DL Creatinine 0.74 0.60-1.30 MG/DL Estimat Glomerular Filtration Rate 85 BUN/Creatinine Ratio 18 Glucose Level 111 H 70-105 MG/DL Calcium Level 8.5 8.5-10.1 MG/DL Corrected Calcium 8.8 8.5-10.1 MG/DL Total Bilirubin 1.1 H 0.1-1.0 MG/DL Aspartate Amino Transf (AST/SGOT) 22 5-34 U/L Alanine Aminotransferase (ALT/SGPT) 21 0-55 U/L Alkaline Phosphatase 38 L 40-136 U/L Total Protein 6.1 L 6.4-8.2 GM/DL Albumin 3.6 3.2-4.5 GM/DL LLE--intact DF and PF of toes and ankle sensation intact to light touch throughout s/p LTKA doing well DC after PT SUDARSHAN BRICEÑO MD Jun 23, 2023 07:53
[2023-06-23] MEDS ORDERED: ENOXAPARIN 30 MG/0.3 ML SYRINGE SC SCH (08:00)
[2023-06-23] MEDS ORDERED: FLUTICASONE/VILANTEROL 200/25 MCG (14 DOSES) IH SCH (08:00)
[2023-06-23] MEDS ORDERED: CALCIUM CARBONATE 600 MG +VITAMIN D TABLET PO SCH (08:00)
[2023-06-23] MEDS: ASPIRIN enteric coated 81MG TABLET PO SCH (08:03)
[2023-06-23] MEDS: SENNA W/DOCUSATE TABLET PO SCH (08:03)
[2023-06-23] MEDS: CELECOXIB 400 MG CAPSULE PO SCH (08:03)
[2023-06-23] MEDS ORDERED: COD LIVER OIL PO SCH (09:00)
[2023-06-23] MEDS ORDERED: NON-FORMULARY MEDICATION 1 EA EA (Multivit-Min/FA/Lycopene/Lut (Centrum Silver Tablet) 1 E PO SCH (09:00)
[2023-06-23] MEDS ORDERED: NON-FORMULARY MEDICATION 1 EA EA (Calcium Carbonate/Vitamin D3 (Caltrate 600 + D Tablet) 1 PO SCH (09:00)
[2023-06-23] MEDS ORDERED: OMEGA 3 (FISH OIL) 1000 MG CAP PO SCH (09:00)
[2023-06-23] MEDS ORDERED: LORATADINE 10 MG TABLET PO SCH (09:00)
[2023-06-23] MEDS ORDERED: NON-FORMULARY MEDICATION 1 EA EA (Omeprazole 40 MG) PO SCH (09:00)
[2023-06-23] MEDS ORDERED: NON-FORMULARY MEDICATION 1 EA EA (Cetirizine HCl 10 MG) PO SCH (09:00)
[2023-06-23] MEDS ORDERED: PANTOPRAZOLE 40 MG TABLET PO SCH (09:00)
--- NOTE | 2023-06-23 10:13 | Physical Therapy Daily Note ---
PT Daily Note-Current Subjective Patient agrees to PT. Currently up independently in room. Pain Numeric Pain Scale: 5-Moderate Pain Location: Left Location Body Site: Knee Pain Description: Acute Section J - Health Conditions 1. Rarely or not at all 2. Occasionally 3. Frequently 4. Almost constantly 8. Unable to answer Pain Effect on Sleep: 1 Pain Interference with Therapy: 1 Pain Interference w/Day-to-Day: 1 Mental Status Patient Orientation: Normal For Age Transfers SCALE: Activities may be completed with or without assistive devices. 4-Yffhgylolw-gqwfwpc completes the activity by him/herself with no assistance from a helper. 5-Set-up or Clean-up Assistance-helper sets up or cleans up; patient completes activity. [place] assists only prior to or following the activity. 4-Supervision or Touching Assistance-helper provides verbal cues and/or to uching/steadying and/or contact guard assistance as patient completes activity. Assistance may be provided throughout the activity or intermittently. 3-Partial/Moderate Assistance-helper does LESS THAN HALF the effort. [place] lifts, holds or supports trunk or limbs, but provides less than half the effort. 2-Substantial/Maximal Assistance-helper does MORE THAN HALF the effort. [place] lifts or holds trunk or limbs and provides more than half the effort. 4-Gkyncpdrn-hkxvnr does ALL the effort. Patient does none of the effort to complete the activity. Or, the assistance of 2 or more helpers is required for the patient to complete the activity. If activity was not attempted, code reason: 7-Patient Refused. 9-Not Applicable-not attempted and the patient did not perform the activity before the current illness, exacerbation or injury. 10-Not Attempted due to Environmental Limitations-(lack of equipment, weather restraints, etc.). 88-Not Attempted due to Medical Conditions or Safety Concerns. Sit to Stand (QC): 6 Chair/Nco-xp-Xokfo Xfer(QC): 6 Weight Bearing Right Lower Extremity: Right Full Weight Bearing Left Lower Extremity: Left Weight Bearing/Tolerated Gait Training Distance: 250' Walk 10 feet (QC): 6 Walk 50 ft with 2 Turns(QC): 6 Walk 150 ft (QC): 6 Gait Assistive Device: FWW slow, antalgic, reciprocal pattern Stair Training Stair Training: Handrails/: 1 handrail, uses walker #of Steps: 4 1 Step (curb) (QC): 4 4 Steps (QC): 4 Exercises Seated Therapy Exercises: Ankle pumps, Long arc quads Seated Reps: 15 Assessment Patient tolerated treatment all and left knee AROM WFL. Patient to dismiss to home with family and home health on this date. Patient instructed to perform HEP issued at preop 3/day and PRN at home. Patient reports she has not been performing them prior to surgery. PT Clock Mechanic Goals Clock Mechanic Goals PT Clock Mechanic Goals Time Frame: Jul 22, 2023 Roll Left & Right (QC): 6 Sit to Lying (QC): 6 Lying-Sitting on Side/Bed(QC): 6 Sit to Stand (QC): 6 Chair/Guz-nc-Xqipn Xfer(QC): 6 Toilet Transfer (QC): 6 Does the Patient Walk: Yes Walk 10 feet (QC): 6 Walk 50ft with 2 Turns (QC): 6 Walk 150 ft (QC): 6 1 Step (curb) (QC): 4 4 Steps (QC): 4 PT Plan Treatment/Plan Treatment Plan: Discontinue PT, goals met Treatment Plan: Bed Mobility, Education, Functional Activity Bár[place], Functional Strength, Group Therapy, Gait, Safety, Therapeutic Exercise, Transfers Treatment Duration: Jul 23, 2023 Frequency: 11 times per week Estimated Hrs Per Day: .25 hour per day Time Time In: 730 Time Out: 754 DATE: Jun 23, 2023 Total Billed Treatment Time: 54 Total Billed Treatment 1 visit EX 8 min FA 16 min AIDA LEROY PT Jun 23, 2023 10:13
[2023-06-23 11:46] VITALS: BP 115/65
--- NOTE | 2023-06-23 12:56 | Progress Note ---
Subjective Date Seen by a Provider: Jun 23, 2023 Time Seen by a Provider: 11:00 Subjective/Events-last exam Patient doing well Ready for discharge Pain is pretty well-controlled Labs stable Review of Systems Musculoskeletal: leg pain Objective Exam Last Set of Vital Signs Vital Signs Date Time Temp Pulse Resp B/P (MAP) Pulse Ox O2 Delivery O2 Flow Rate FiO2 06/23/23 12:45 06/23/23 11:46 36.5 85 16 93 Room Air 06/22/23 11:30 2.00 Capillary Refill : Less Than 3 Seconds I&O Intake and Output 06/22/23 23:59 Intake Total 1090 ml Output Total 300 ml Balance 790 ml Intake Oral 1040 ml IV Total 50 ml Output Urine Total 300 ml General: Alert, Oriented X3, Cooperative, No Acute Distress Lungs: Clear to Auscultation, Normal Air Movement Heart: Regular Rate, Normal S1, Normal S2, No Murmurs Psych/Mental Status: Mental Status NL, Mood NL Results Lab Laboratory Tests 06/23/23 05:29: White Blood Count 9.1, Red Blood Count 3.86, Hemoglobin 11.9, Hematocrit 36, Mean Corpuscular Volume 92, Mean Corpuscular Hemoglobin 31, Mean Corpuscular Hemoglobin Concent 34, Red Cell Distribution Width 13.2, Platelet Count 258, Mean Platelet Volume 8.8L, Immature Granulocyte % (Auto) 0, Neutrophils (%) (Auto) 75, Lymphocytes (%) (Auto) 12, Monocytes (%) (Auto) 13H, Eosinophils (%) (Auto) 0, Basophils (%) (Auto) 0, Neutrophils # (Auto) 6.8, Lymphocytes # (Auto) 1.1, Monocytes # (Auto) 1.2H, Eosinophils # (Auto) 0.0, Basophils # (Auto) 0.0, Immature Granulocyte # (Auto) 0.0, Sodium Level 132L, Potassium Level 4.0, Chloride Level 100, Carbon Dioxide Level 26, Anion Gap 6, Blood Urea Nitrogen 13, Creatinine 0.74, Estimat Glomerular Filtration Rate 85, BUN/Creatinine Ratio 18, Glucose Level 111H, Calcium Level 8.5, Corrected Calcium 8.8, Total Bilirubin 1.1H, Aspartate Amino Transf (AST/SGOT) 22, Alanine Aminotransferase (ALT/SGPT) 21, Alkaline Phosphatase 38L, Total Protein 6.1L, Albumin 3.6 Microbiology 06/22/23 MRSA Screen - Final, Complete MRSA not isolated Assessment/Plan Assessment/Plan Assess & Plan/Chief Complaint Assessment: Left knee replacement due to severe osteoarthritis GERD Hypothyroidism Nocturnal hypoxia on 2 L of oxygen at night COPD Plan: Monitor pain LUIS DEL CID DO Jun 23, 2023 12:56
--- NOTE | 2023-06-23 15:28 | Anesthesia-Regional Post-Op ---
Regional Patient Condition Mental Status: Alert, Oriented x3 Circulation: Same as Pre-Op Headache: Absent Sensation: Full Recovery Motor Block: Absent Post Op Complications Complications None Follow Up Care/Instructions Patient Instructions None needed. Anesthesia/Patient Condition Patient is already discharged to home but she was doing well, no complaints, stable vital signs, no apparent adverse anesthesia problems. No complications reported per nursing. NELDA REBOLLAR DO Jun 23, 2023 15:28
== END 2023-06-23 12:46 | disposition home health service (06) ==
LOC: SDC 07:17 → 4TH 07:17 → UNDOADMOB 07:17 → INTOOBSV 07:17 → SURG 07:18 → 4TH 07:18 → EDSTATUS 09:30 → 4TH 11:50 → SURG 11:50 → SDC 06-23 12:46 → UNDODISOB 06-23 12:46
PROVIDERS: ATTEND Orthopaedic Surgery
DX: M17.12 Unilateral primary osteoarthritis, left knee (principal); J44.9 Chronic obstructive pulmonary disease, unspecified; K21.9 Gastro-esophageal reflux disease without esophagitis; E03.9 Hypothyroidism, unspecified; R09.02 Hypoxemia; Z79.890 Hormone replacement therapy; Z79.899 Other long term (current) drug therapy
CPT/HCPCS: 27447; 73560; 80053; 85025; 86850; 86900; 86901; 87081; 94640 ×2; 96372; 96375; 96376; 97110; 97116 ×2; 97162; C1713 ×2; C1776 ×4; 36415